=== PATIENT | male | born 1955 | race African-American/Black ===

== ENCOUNTER 2021-11-02 23:33 | Inpatient (IN) | payer OTHER ==
[~2021-11-02] VITALS: Ht 175.3 cm; Wt 96.9 kg
[2021-11-02 23:53] VITALS: BP 111/69
[2021-11-03] VITALS (22 sets, daily range): BP systolic 83–143; BP diastolic 59–80
--- NOTE | 2021-11-03 00:14 | RAD ---
EXAMINATION: Chest radiograph. VIEWS: 1 COMPARISON: None INDICATION:66 years, Male, ET tube placement. FINDINGS: Stable cardiomediastinal silhouette. Left basilar consolidative opacity unchanged since prior exam. R ight basilar subsegmental atelectasis. No pleural effusion or pneumothorax. No acute osseous process. Endotracheal tube tip locates approximately 6.2 cm proximal to han. Enteric tube tip and sidehole seen within the stomach. IMPRESSION: 1. Endotracheal tube tip in satisfactory position. 2. Unchanged left basilar infiltrate. Electronically signed by: Jimenez Douglass MD (11/03/2021 12:12 AM) [facility]
[2021-11-03] MEDS ORDERED: POLYVINYL ALCOHOL 1.4% OPHTH SOLUTION 15ML BOTTLE. OU PRN (00:15)
[2021-11-03] MEDS ORDERED: PROPOFOL 100 ML IV PRN (00:15)
[2021-11-03] MEDS: PROPOFOL 100 ML IV PRN ×5 (00:20→20:55)
[2021-11-03] MEDS: SODIUM BICARBONATE VIAL 150 MEQ in IV DEXTROSE 5% 1,000 ML IV SCH ×2 (03:12→15:06)
[2021-11-03 04:23] LABS: BASO # 0.1 x10^3/uL (0.0-0.2); BASO % 1 % (0-3); EOS # 0.1 x10^3/uL (0.0-0.7); EOS % 1 % (0-3); HEMATOCRIT 37.1 % (39.0-53.0); HEMOGLOBIN 12.6 g/dL (13.0-17.5); LYMPH # 1.3 x10^3/uL (1.0-4.8); LYMPH % 13 % (24-48); MEAN CORPUSCULAR HEMOGLOBIN 28 pg (25-35); MEAN CORPUSCULAR HGB CONC 34 g/dL (31-37); MEAN CORPUSCULAR VOLUME 83 fL (79-100); MONO # 0.5 x10^3/uL (0.0-1.1); MONO % 5 % (0-9); NEUT % 80 % (31-73); PLATELET COUNT 239 x10^3/uL (140-400); RED BLOOD COUNT 4.46 x10^6/uL (4.30-5.70); RED CELL DISTRIBUTION WIDTH 13.5 % (11.5-14.5); WHITE BLOOD COUNT 10.1 x10^3/uL (4.0-11.0)
[2021-11-03 04:47] LABS: ALBUMIN 3.8 g/dL (3.4-5.0); ALBUMIN/GLOBULIN RATIO 1.1 (1.0-1.7); CALCIUM 8.6 mg/dL (8.5-10.1); POTASSIUM 3.7 mmol/L (3.5-5.1); TOTAL BILIRUBIN 0.7 mg/dL (0.2-1.0); TOTAL PROTEIN 7.2 g/dL (6.4-8.2)
--- NOTE | 2021-11-03 06:41 | NUR ---
Pt intubated and sedated with 15mcg propofol, carvalho in place. Pt bp stable with map >65 throughout shift, HR occasionally lalitha in mid 50's otherwise in the 60's. Pt intermittently thrashes in bed when awoken but will calm back down with RN calming. Pt maintains gag refelx, carvalho put out 2000ml this shift. Unable to finish admission: immunization,family, past medical history and general questions admission.
[2021-11-03 08:03] LABS: BASE EXCESS ABG 2 mmol/L (-3-3); HCO3 ABG 27 mmol/L (21-28); PCO2 ABG 41 mmHg (35-46); PO2 ABG 116 mmHg (65-108); SAT O2 ABG 98 % (92-99)
--- NOTE | 2021-11-03 09:41 | PN ---
DATE: 11/03/2021 SUBJECTIVE: The patient is intubated and mechanically ventilated. He is on propofol and bicarb drip. He was seen by the lug loader who recommended a bicarbonate drip. PHYSICAL EXAMINATION: GENERAL: When I examined him this morning, he looked well and was clearly in no apparent respiratory distress. No pallor, jaundice, cyanosis or thyromegaly. No jugular venous distention. No limb edema. VITAL SIGNS: His heart rate was 59, blood pressure was 118/72, temperature 97.6, respiratory rate was 18 and oxygen saturation was 100% on FiO2 of 50%. HEAD, EYES, EARS, NOSE, AND THROAT: Normocephalic, atraumatic. He has orotracheal and orogastric tube. NECK: Supple. HEART: Showed normal first and second heart sounds. No gallop or murmur. CHEST: Shows central trachea, equal bilateral chest expansion, air entry, vesicular breath sounds. No crepitation or rhonchi. ABDOMEN: Distended, soft, nontender. NEUROLOGIC: He is sedated; however, he opens eyes and moves all extremities spontaneously. GENITOURINARY: He has an indwelling Buck catheter. His intake and output are incompletely recorded. LABORATORY DATA: His lab work this morning showed a pH of 7.44, pCO2 of 41, pO2 of 116, bicarbonate 27 and oxygen saturation of 98% on FiO2 of 60%. His white cell count was 10,000, hemoglobin 13, hematocrit 37, MCV 83 and platelet count 239,000 with normal manual differential. His chemistry showed a serum sodium 140, potassium 3.7, chloride 102, bicarbonate 28, anion gap of 10, BUN 16, creatinine 1, estimated GFR was 91 mL per minute. His glucose 116, calcium was 8.6. Total bilirubin, AST, ALT, alkaline phosphatase were normal. His CK was high at 1093, total protein 7.2, albumin was 3.8. ASSESSMENT: 1. Suicidal attempt by overdose on Flexeril and baclofen, he took 460 mg. 2. Acute hypoxic respiratory failure. 3. Hypertension. 4. Anxiety and depression, attempted to contact his sister by the name of Alice Brown, but apparently the number given here was wrong. PLAN: To continue with mechanical ventilation, sedation and continue with bicarbonate drip. I will monitor his potassium. YANI/NUHA DR: YANI/deana TID: [id number]
--- NOTE | 2021-11-03 10:34 | CONS ---
DATE OF CONSULTATION: 11/03/2021 PULMONARY CONSULTATION ATTENDING PHYSICIAN: Savanna Canseco MD REASON FOR CONSULTATION: Respiratory failure, suicide overdose with baclofen. HISTORY OF PRESENT ILLNESS: The patient is a 66-year-old male who lives in [place]. He was brought to [facility] after he was found to be in respiratory failure. He was not responsive. He was very agitated and restless as well. The patient has history of anxiety and depression. He was intubated. He was found to have taken 23 pills of baclofen, which were 20 mg each. Arterial blood gases reveal a pH of 7.44, pCO2 of 41 and a pO2 of 116 on 60% FiO2. He is down to 50% FiO2, 5 of PEEP, assist control of 18. Chest x-ray revealed an elevated right hemidiaphragm. There is some volume loss in the left base. Consultation requested for further evaluation and management. PAST MEDICAL HISTORY: Significant for history of anxiety, depression, history of hypertension. PAST SURGICAL HISTORY: No recent surgery. ALLERGIES: DULOXETINE, HYDROCHLOROTHIAZIDE AND TRIAMTERENE. MEDICATIONS: Reviewed as listed in the MRAD including bicarbonate drip. REVIEW OF SYSTEMS: Unable to obtain. He is on the ventilator. SOCIAL HISTORY: Unable to obtain from the patient. PHYSICAL EXAMINATION: VITAL SIGNS: Reviewed. Blood pressure is stable, pulse ox is 100%. Afebrile. NECK: Supple. LUNGS: With few anterior rhonchi. CARDIOVASCULAR: With a regular rate. ABDOMEN: Soft, nontender. EXTREMITIES: With trace pitting edema. LABORATORY DATA: Reviewed. ABG discussed in my history of present illness. BUN 16, creatinine 1.0. White cell count 10.1, hemoglobin 12.6 and platelets are 239. IMPRESSION: 1. Acute respiratory failure secondary to toxic encephalopathy/baclofen overdose. 2. Toxic encephalopathy secondary to baclofen overdose. The patient took 23 pills each 20 mg dose. 3. Severe agitation. 4. Abnormal chest x-ray with elevated right hemidiaphragm and volume loss of the left base. 5. No significant bradycardia. It can be associated with baclofen overdose. We will closely monitor. Atropine as indicated if needed. 6. Baclofen overdose can also mimic anoxic encephalopathy. RECOMMENDATIONS: 1. We will continue present assist control mode. We will keep the patient intubated for at least 48 hours. We will follow the poison control guidelines. We will leave him on propofol and avoid Versed per poison control. 2. Follow ABGs and make necessary adjustments. 3. Continue bicarbonate drip. 4. Follow chest x-rays as needed. 5. DVT and stress ulcer prophylaxis. 6. Discussed with RN, discussed with RT and discussed with Dr. Canseco. Chart reviewed, imaging studies reviewed. Discussed with Dr. Olivas. Total critical care time [address]: Pankaj TID: [id number] [facility]
--- NOTE | 2021-11-03 11:13 | HP ---
DATE OF SERVICE: 11/03/2021 ADMIT DATE: 11/02/2021 HISTORY OF PRESENT ILLNESS: The patient is a 66-year-old -[place] male patient who presented to Emergency Room of [facility] with an overdose and chief complaint of suicidal ideation and suicidal attempt. States at about 6 p.m., he took 23 tablets of 20 mg Flexeril with a total of 460 mg of baclofen. He has no homicidal ideation, no hallucination. He took all this between 6 p.m. and 7 p.m. His vital signs initially were notable for hypertension. Physical exam was initially stable. His toxic dose of baclofen is 200 and poison control center was consulted. The poison center said that 99% of the time, the patient is going to coma, can make brain , have bradycardia and hypotension and being intubated, the patient rolled to the trauma bay, 2 IVs were placed, cardiac pads in place, IV fluid resuscitation began. Discussed findings with the patient. He expressed his wish to being a Full Code. While in the trauma bay, the patient became pale, diaphoretic with the blood pressure dropping and arterial pressure dropping from initial. He became sleepy and nauseous, so a decision was made to intubate while there is time before he becomes emergent. Also, concerned about airway protection as the patient most likely would become unconscious and could vomit as he was already nauseous and had a concern for aspiration and a 7.5 mm endotracheal tube was placed under video laryngoscope; 20 mg of etomidate and 100 mg rocuronium pain control strategy initially after intubation with fentanyl given. The patient was probably sedated enough on his baclofen and the patient was basically transferred to [facility] to continue mechanical ventilation. Consult the liberal arts teacher and credit adjuster as he likely requires hemodialysis for this overdose of baclofen. PAST MEDICAL HISTORY: Significant for hypertension, depression and anxiety together with paresthesia. FAMILY HISTORY: Unobtainable. SOCIAL HISTORY: Also unobtainable except that he is depressed and has had a suicidal attempt. REVIEW OF SYSTEMS: Unobtainable. ALLERGIES: HE IS ALLERGIC TO DULOXETINE, HYDROCHLOROTHIAZIDE AND TRIAMTERENE. MEDICATIONS: He is currently on the following medications. PHYSICAL EXAMINATION: GENERAL: On arrival to the Emergency Room, he was initially awake, alert, responding appropriately. There is no pallor, jaundice, cyanosis, thyromegaly. No jugular venous distension. No limb edema. VITAL SIGNS: His heart rate on arrival was 94, blood pressure was 113/61, temperature was 97.9, respiratory rate was 18 and oxygen saturation was 100% on room air. HEAD, EYES, EARS, NOSE, AND THROAT: Normocephalic, atraumatic. NECK: Supple. HEART: Showed normal first and second heart sounds. No gallop or murmur. CHEST: Clear to auscultation. No crepitation or rhonchi. ABDOMEN: Distended, soft, nontender. NEUROLOGIC: He was grossly intact. LABORATORY DATA: His lab work showed a white cell count of 14,200; hemoglobin 13; hematocrit 39; MCV 84 and platelet count 268,000 with an automated differential showed 88% polymorphs, 7% lymphocytes and 4% monocytes. His serum sodium was 134, potassium 4.4, chloride 99, bicarbonate 27, anion gap of 8, BUN 19, creatinine 1.3. Estimated GFR was 67 mL per minute. His glucose was 99, calcium was 9.5. Total bilirubin, AST, ALT, alkaline phosphatase were normal. His troponin high sensitivity was 10. Total protein 8.3, albumin was 4.5. His arterial blood gases after intubation showed a pH of 7.33, pCO2 of 52, pO2 of 83 and bicarbonate 28 and oxygen saturation was 95% on FiO2 of 60%. His urinalysis is essentially unremarkable. Toxic screen was positive for amphetamine, methamphetamine. His coronavirus rapid testing was negative. DIAGNOSTIC DATA: His chest x-ray after intubation showed an endotracheal tube tip about 5.7 cm above the han. Subsequent radiographs was obtained after placement of enteric tube with distal aspect difficult to evaluate given overlying structures, mild patchy mid and bibasilar opacities, no pleural effusion, no pneumothorax, normal heart size. ASSESSMENT AND PLAN: The patient obviously was intubated because of the altered mental status, nausea and to protect his airways and was transferred to [facility] to consult the liberal arts teacher as well as a credit adjuster for hemodialysis for the diagnosis of baclofen overdose that he took 460 mg tablet of baclofen and has other medical problems with hypertension, anxiety and depression. He was started on IV fluid as well as propofol for sedation. YANI/BOB/PATRICIA DR: YANI/deana TID: [id number]
[2021-11-03] MEDS: ENOXAPARIN 40 MG/0.4 ML SYRINGE. SQ SCH (12:26)
[2021-11-03 16:08] LABS: POTASSIUM 4.1 mmol/L (3.5-5.1)
[2021-11-03] MEDS: FAMOTIDINE 20 MG TABLET. PO SCH (20:55)
[2021-11-04] VITALS (24 sets, daily range): BP systolic 104–153; BP diastolic 58–89
[2021-11-04] MEDS: PROPOFOL 100 ML IV PRN ×7 (01:19→23:09)
[2021-11-04] MEDS: SODIUM BICARBONATE VIAL 150 MEQ in IV DEXTROSE 5% 1,000 ML IV SCH ×2 (01:19→14:57)
[2021-11-04 05:00] LABS: BASO # 0.1 x10^3/uL (0.0-0.2); BASO % 1 % (0-3); EOS # 0.1 x10^3/uL (0.0-0.7); EOS % 1 % (0-3); HEMATOCRIT 39.2 % (39.0-53.0); LYMPH # 1.4 x10^3/uL (1.0-4.8); LYMPH % 20 % (24-48); MEAN CORPUSCULAR HEMOGLOBIN 27 pg (25-35); MEAN CORPUSCULAR HGB CONC 33 g/dL (31-37); MEAN CORPUSCULAR VOLUME 82 fL (79-100); MONO # 0.3 x10^3/uL (0.0-1.1); MONO % 5 % (0-9); NEUT # 5.3 x10^3/uL (1.8-7.7); NEUT % 73 % (31-73); PLATELET COUNT 223 x10^3/uL (140-400); RED BLOOD COUNT 4.77 x10^6/uL (4.30-5.70); RED CELL DISTRIBUTION WIDTH 13.6 % (11.5-14.5); WHITE BLOOD COUNT 7.2 x10^3/uL (4.0-11.0)
[2021-11-04 05:23] LABS: ALBUMIN 3.3 g/dL (3.4-5.0); ALBUMIN/GLOBULIN RATIO 0.9 (1.0-1.7); CALCIUM 8.3 mg/dL (8.5-10.1); POTASSIUM 3.3 mmol/L (3.5-5.1); TOTAL BILIRUBIN 0.4 mg/dL (0.2-1.0)
--- NOTE | 2021-11-04 05:38 | PDOC ---
PULMONARY PROGRESS NOTES DATE: 11/04/21 TIME: 05:38 Subjective on vent sedated on prop fentanyl fi02 50% peep 5 Vitals Vital Signs Date Time Temp Pulse Resp B/P (MAP) Pulse Ox O2 Delivery O2 Flow Rate FiO2 11/04/21 04:00 98 Ventilator 11/04/21 02:00 63 18 118/75 (89) 11/04/21 00:00 97.1 97.1 Comments ros unable to obtain sedated on vent HEENT: Other (nc at perrl nose clear orally intubated neck no lad no thyromegaly) Lungs: Clear Cardiovascular: S1, S2 Abdomen: Soft, Non-tender Extremities: No Edema Skin: Warm Labs Laboratory Tests Test 11/03/21 04:00 11/03/21 07:54 11/03/21 15:00 11/04/21 04:30 White Blood Count 10.1 x10^3/uL (4.0-11.0) 7.2 x10^3/uL (4.0-11.0) Red Blood Count 4.46 x10^6/uL (4.30-5.70) 4.77 x10^6/uL (4.30-5.70) Hemoglobin 12.6 g/dL (13.0-17.5) 13.0 g/dL (13.0-17.5) Hematocrit 37.1 % (39.0-53.0) 39.2 % (39.0-53.0) Mean Corpuscular Volume 83 fL (79-100) 82 fL (79-100) Mean Corpuscular Hemoglobin 28 pg (25-35) 27 pg (25-35) Mean Corpuscular Hemoglobin Concent 34 g/dL (31-37) 33 g/dL (31-37) Red Cell Distribution Width 13.5 % (11.5-14.5) 13.6 % (11.5-14.5) Platelet Count 239 x10^3/uL (140-400) 223 x10^3/uL (140-400) Neutrophils (%) (Auto) 80 % (31-73) 73 % (31-73) Lymphocytes (%) (Auto) 13 % (24-48) 20 % (24-48) Monocytes (%) (Auto) 5 % (0-9) 5 % (0-9) Eosinophils (%) (Auto) 1 % (0-3) 1 % (0-3) Basophils (%) (Auto) 1 % (0-3) 1 % (0-3) Neutrophils # (Auto) 8.0 x10^3/uL (1.8-7.7) 5.3 x10^3/uL (1.8-7.7) Lymphocytes # (Auto) 1.3 x10^3/uL (1.0-4.8) 1.4 x10^3/uL (1.0-4.8) Monocytes # (Auto) 0.5 x10^3/uL (0.0-1.1) 0.3 x10^3/uL (0.0-1.1) Eosinophils # (Auto) 0.1 x10^3/uL (0.0-0.7) 0.1 x10^3/uL (0.0-0.7) Basophils # (Auto) 0.1 x10^3/uL (0.0-0.2) 0.1 x10^3/uL (0.0-0.2) Sodium Level 140 mmol/L (136-145) 143 mmol/L (136-145) 143 mmol/L (136-145) Potassium Level 3.7 mmol/L (3.5-5.1) 4.1 mmol/L (3.5-5.1) 3.3 mmol/L (3.5-5.1) Chloride Level 102 mmol/L (98-107) 105 mmol/L (98-107) 104 mmol/L (98-107) Carbon Dioxide Level 28 mmol/L (21-32) 29 mmol/L (21-32) 32 mmol/L (21-32) Anion Gap 10 (6-14) 9 (6-14) 7 (6-14) Blood Urea Nitrogen 16 mg/dL (8-26) 11 mg/dL (8-26) 7 mg/dL (8-26) Creatinine 1.0 mg/dL (0.7-1.3) 1.0 mg/dL (0.7-1.3) 1.0 mg/dL (0.7-1.3) Estimated GFR (Cockcroft-Gault) 91.0 91.0 91.0 BUN/Creatinine Ratio 16 (6-20) 7 (6-20) Glucose Level 116 mg/dL (70-99) 115 mg/dL (70-99) 129 mg/dL (70-99) Calcium Level 8.6 mg/dL (8.5-10.1) 9.0 mg/dL (8.5-10.1) 8.3 mg/dL (8.5-10.1) Total Bilirubin 0.7 mg/dL (0.2-1.0) 0.4 mg/dL (0.2-1.0) Aspartate Amino Transf (AST/SGOT) 32 U/L (15-37) 33 U/L (15-37) Alanine Aminotransferase (ALT/SGPT) 30 U/L (16-63) 31 U/L (16-63) Alkaline Phosphatase 81 U/L (46-116) 80 U/L (46-116) Creatine Kinase 1093 U/L (39-308) 744 U/L (39-308) Total Protein 7.2 g/dL (6.4-8.2) 7.0 g/dL (6.4-8.2) Albumin 3.8 g/dL (3.4-5.0) 3.3 g/dL (3.4-5.0) Albumin/Globulin Ratio 1.1 (1.0-1.7) 0.9 (1.0-1.7) O2 Saturation 98 % (92-99) Arterial Blood pH 7.44 (7.35-7.45) Arterial Blood pCO2 at Patient Temp 41 mmHg (35-46) Arterial Blood pO2 at Patient Temp 116 mmHg (65-108) Arterial Blood HCO3 27 mmol/L (21-28) Arterial Blood Base Excess 2 mmol/L (-3-3) FiO2 60% vent Laboratory Tests Test 11/03/21 07:54 11/03/21 15:00 11/04/21 04:30 O2 Saturation 98 % (92-99) Arterial Blood pH 7.44 (7.35-7.45) Arterial Blood pCO2 at Patient Temp 41 mmHg (35-46) Arterial Blood pO2 at Patient Temp 116 mmHg (65-108) Arterial Blood HCO3 27 mmol/L (21-28) Arterial Blood Base Excess 2 mmol/L (-3-3) FiO2 60% vent Sodium Level 143 mmol/L (136-145) 143 mmol/L (136-145) Potassium Level 4.1 mmol/L (3.5-5.1) 3.3 mmol/L (3.5-5.1) Chloride Level 105 mmol/L (98-107) 104 mmol/L (98-107) Carbon Dioxide Level 29 mmol/L (21-32) 32 mmol/L (21-32) Anion Gap 9 (6-14) 7 (6-14) Blood Urea Nitrogen 11 mg/dL (8-26) 7 mg/dL (8-26) Creatinine 1.0 mg/dL (0.7-1.3) 1.0 mg/dL (0.7-1.3) Estimated GFR (Cockcroft-Gault) 91.0 91.0 Glucose Level 115 mg/dL (70-99) 129 mg/dL (70-99) Calcium Level 9.0 mg/dL (8.5-10.1) 8.3 mg/dL (8.5-10.1) White Blood Count 7.2 x10^3/uL (4.0-11.0) Red Blood Count 4.77 x10^6/uL (4.30-5.70) Hemoglobin 13.0 g/dL (13.0-17.5) Hematocrit 39.2 % (39.0-53.0) Mean Corpuscular Volume 82 fL (79-100) Mean Corpuscular Hemoglobin 27 pg (25-35) Mean Corpuscular Hemoglobin Concent 33 g/dL (31-37) Red Cell Distribution Width 13.6 % (11.5-14.5) Platelet Count 223 x10^3/uL (140-400) Neutrophils (%) (Auto) 73 % (31-73) Lymphocytes (%) (Auto) 20 % (24-48) Monocytes (%) (Auto) 5 % (0-9) Eosinophils (%) (Auto) 1 % (0-3) Basophils (%) (Auto) 1 % (0-3) Neutrophils # (Auto) 5.3 x10^3/uL (1.8-7.7) Lymphocytes # (Auto) 1.4 x10^3/uL (1.0-4.8) Monocytes # (Auto) 0.3 x10^3/uL (0.0-1.1) Eosinophils # (Auto) 0.1 x10^3/uL (0.0-0.7) Basophils # (Auto) 0.1 x10^3/uL (0.0-0.2) BUN/Creatinine Ratio 7 (6-20) Total Bilirubin 0.4 mg/dL (0.2-1.0) Aspartate Amino Transf (AST/SGOT) 33 U/L (15-37) Alanine Aminotransferase (ALT/SGPT) 31 U/L (16-63) Alkaline Phosphatase 80 U/L (46-116) Creatine Kinase 744 U/L (39-308) Total Protein 7.0 g/dL (6.4-8.2) Albumin 3.3 g/dL (3.4-5.0) Albumin/Globulin Ratio 0.9 (1.0-1.7) Comments 11/04 cxr reviewed There is an endotracheal tube within the mid trachea. There is a nasogastric tube looped within the stomach. There is stable elevation of the right hemidiaphragm and bilateral lower lobe interstitial infiltrate. There are suspected partial left lower lobe consolidation. There is no pneumothorax. There is no pleural effusion. The heart is normal in size. Impression . IMPRESSION: 1. Acute respiratory failure secondary to toxic encephalopathy/baclofen overdose. 2. Toxic encephalopathy secondary to baclofen overdose. The patient took 23 pills each 20 mg dose. 3. Severe agitation. 4. Abnormal chest x-ray with elevated right hemidiaphragm and volume loss of the left base. 5. No significant bradycardia. It can be associated with baclofen overdose. We will closely monitor. Atropine as indicated if needed. 6. Baclofen overdose can also mimic anoxic encephalopathy. Plan . RECOMMENDATIONS: 1. cont vent support setting reviewed decrease fi02 40% sbt when more stable We will follow the poison control guidelines. We will leave him on propofol and avoid Versed per poison control. 2. Follow ABGs and make necessary adjustments. 3. Continue bicarbonate drip. per nephro 4. chest x-rays reviewed 5. DVT and stress ulcer prophylaxis. 6. Discussed with RN, discussed with DARIANA SHUKLA MD Nov 04, 2021 05:38
--- NOTE | 2021-11-04 08:29 | PN ---
DATE: 11/04/2021 SUBJECTIVE: The patient continued to be sedated, intubated and mechanically ventilated. He is on a bicarb drip. PHYSICAL EXAMINATION: GENERAL: When I saw him this morning, he looked well and was clearly in no apparent respiratory distress. No pallor, jaundice, cyanosis or thyromegaly. No jugular venous distention. No lower limb edema. VITAL SIGNS: His heart rate was 74, blood pressure was 115/67, temperature 98.2, respiratory rate was 18 and oxygen saturation was 100% on FiO2 of 40%. HEAD, EYES, EARS, NOSE, AND THROAT: Normocephalic, atraumatic. NECK: Supple. HEART: Showed normal first and second heart sounds. No gallop, rub or murmur. CHEST: Clear to auscultation, no crepitation or rhonchi. ABDOMEN: Distended, soft, nontender. NEUROLOGIC: He is heavily sedated, but able to move his extremities spontaneously. His intake over the last 24 hours was 373, output was 1975. LABORATORY DATA: As of this morning, his white cell count was 7200, hemoglobin 13, hematocrit 39, MCV 82 and platelet count 223,000. His chemistry showed a serum sodium 143, potassium 3.3, chloride 104, bicarbonate 32, anion gap of 7, BUN 7, creatinine 1, estimated GFR was 91 mL per minute. His glucose 129, calcium was 8.3. Total bilirubin, AST, ALT, alkaline phosphatase were normal. CK is down to 744. Total protein 7, albumin 3.3. ASSESSMENT: 1. Suicidal attempt by overdosing on baclofen. He took a total of 460 mg. 2. Acute hypoxic respiratory failure. 3. Hypertension. 4. Anxiety and depression. 5. Hypokalemia. PLAN: My plan is to obviously continue with mechanical ventilation, sedation and bicarb drip. We will replenish his potassium. I will contact the poison control center to see whether bicarbonate drip is part of the treatment. JESSICA DR: Rhea TID: [id number]
--- NOTE | 2021-11-04 08:56 | RAD ---
EXAM: Chest, single view. HISTORY: Endotracheal tube placement. COMPARISON: 11/02/2021 FINDINGS: A frontal view of the chest is obtained. There is an endotracheal tube within the mid trach ea. There is a nasogastric tube looped within the stomach. There is stable elevation of the right hem idiaphragm and bilateral lower lobe interstitial infiltrate. There are suspected partial left lower l obe consolidation. There is no pneumothorax. There is no pleural effusion. The heart is normal in siz e. IMPRESSION: 1. Stable partially consolidated bilateral lower lobe infiltrate. 2. Stable elevation of the right hemidiaphragm. 3. Stable support lines and tubes. Electronically signed by: Gloria Urbina MD (11/04/2021 8:54 AM) [facility]
[2021-11-04] MEDS ORDERED: POTASSIUM BICARB 20 MEQ EFFERVESCENT TABLET. PO ONE (09:00)
[2021-11-04] MEDS ORDERED: POTASSIUM CHLORIDE 20 MEQ TABLET.ER. PO ONE (09:00)
[2021-11-04] MEDS: ENOXAPARIN 40 MG/0.4 ML SYRINGE. SQ SCH (10:41)
[2021-11-04] MEDS: FAMOTIDINE 20 MG TABLET. PO SCH (20:11)
[2021-11-05] VITALS (23 sets, daily range): BP systolic 108–144; BP diastolic 60–93
[2021-11-05] MEDS: SODIUM BICARBONATE VIAL 150 MEQ in IV DEXTROSE 5% 1,000 ML IV SCH ×2 (03:27→13:55)
[2021-11-05] MEDS: PROPOFOL 100 ML IV PRN ×7 (04:34→23:54)
--- NOTE | 2021-11-05 05:51 | PDOC ---
PULMONARY PROGRESS NOTES DATE: 11/05/21 TIME: 05:51 Subjective on vent sedated on prop fentanyl fi02 40% peep 5 small ett secretion Vitals Vital Signs Date Time Temp Pulse Resp B/P (MAP) Pulse Ox O2 Delivery O2 Flow Rate FiO2 11/05/21 05:00 100 Ventilator 11/05/21 01:00 74 18 135/77 (96) 11/05/21 00:00 98.7 98.7 Comments ros unable to obtain sedated on vent HEENT: Other (nc at perrl nose clear orally intubated neck no lad no thyromegaly) Lungs: Clear Cardiovascular: S1, S2 Abdomen: Soft, Non-tender Extremities: No Edema Skin: Warm Labs Laboratory Tests Test 11/03/21 07:54 11/03/21 15:00 11/04/21 04:30 O2 Saturation 98 % (92-99) Arterial Blood pH 7.44 (7.35-7.45) Arterial Blood pCO2 at Patient Temp 41 mmHg (35-46) Arterial Blood pO2 at Patient Temp 116 mmHg (65-108) Arterial Blood HCO3 27 mmol/L (21-28) Arterial Blood Base Excess 2 mmol/L (-3-3) FiO2 60% vent Sodium Level 143 mmol/L (136-145) 143 mmol/L (136-145) Potassium Level 4.1 mmol/L (3.5-5.1) 3.3 mmol/L (3.5-5.1) Chloride Level 105 mmol/L (98-107) 104 mmol/L (98-107) Carbon Dioxide Level 29 mmol/L (21-32) 32 mmol/L (21-32) Anion Gap 9 (6-14) 7 (6-14) Blood Urea Nitrogen 11 mg/dL (8-26) 7 mg/dL (8-26) Creatinine 1.0 mg/dL (0.7-1.3) 1.0 mg/dL (0.7-1.3) Estimated GFR (Cockcroft-Gault) 91.0 91.0 Glucose Level 115 mg/dL (70-99) 129 mg/dL (70-99) Calcium Level 9.0 mg/dL (8.5-10.1) 8.3 mg/dL (8.5-10.1) White Blood Count 7.2 x10^3/uL (4.0-11.0) Red Blood Count 4.77 x10^6/uL (4.30-5.70) Hemoglobin 13.0 g/dL (13.0-17.5) Hematocrit 39.2 % (39.0-53.0) Mean Corpuscular Volume 82 fL (79-100) Mean Corpuscular Hemoglobin 27 pg (25-35) Mean Corpuscular Hemoglobin Concent 33 g/dL (31-37) Red Cell Distribution Width 13.6 % (11.5-14.5) Platelet Count 223 x10^3/uL (140-400) Neutrophils (%) (Auto) 73 % (31-73) Lymphocytes (%) (Auto) 20 % (24-48) Monocytes (%) (Auto) 5 % (0-9) Eosinophils (%) (Auto) 1 % (0-3) Basophils (%) (Auto) 1 % (0-3) Neutrophils # (Auto) 5.3 x10^3/uL (1.8-7.7) Lymphocytes # (Auto) 1.4 x10^3/uL (1.0-4.8) Monocytes # (Auto) 0.3 x10^3/uL (0.0-1.1) Eosinophils # (Auto) 0.1 x10^3/uL (0.0-0.7) Basophils # (Auto) 0.1 x10^3/uL (0.0-0.2) BUN/Creatinine Ratio 7 (6-20) Total Bilirubin 0.4 mg/dL (0.2-1.0) Aspartate Amino Transf (AST/SGOT) 33 U/L (15-37) Alanine Aminotransferase (ALT/SGPT) 31 U/L (16-63) Alkaline Phosphatase 80 U/L (46-116) Creatine Kinase 744 U/L (39-308) Total Protein 7.0 g/dL (6.4-8.2) Albumin 3.3 g/dL (3.4-5.0) Albumin/Globulin Ratio 0.9 (1.0-1.7) Comments 11/05 cxr reviewed, ett ok Heart size is normal. Retrocardiac left lower lobe opacity adjacent to the diaphragm stable. Mild elevation of the right diaphragm with basilar lower lobe opacity is stable, a small subpulmonic right pleural effusion cannot be excluded. 11/04 cxr reviewed There is an endotracheal tube within the mid trachea. There is a nasogastric tube looped within the stomach. There is stable elevation of the right hemidiaphragm and bilateral lower lobe interstitial infiltrate. There are susp ected partial left lower lobe consolidation. There is no pneumothorax. There is no pleural effusion. The heart is normal in size. Impression . IMPRESSION: 1. Acute respiratory failure secondary to toxic encephalopathy/baclofen overdose. 2. Toxic encephalopathy secondary to baclofen overdose. The patient took 23 pills each 20 mg dose. 3. Severe agitation. 4. Abnormal chest x-ray with elevated right hemidiaphragm and volume loss of the left base. 5. No significant bradycardia. It can be associated with baclofen overdose. We will closely monitor. Atropine as indicated if needed. 6. Baclofen overdose can also mimic anoxic encephalopathy. Plan . 11/05 1. cont vent support setting reviewed decrease sedation sbt when more alert he is agitated w decrease sedation ck up to 4000 will cont sedation add precedex if needed no sbt tiral today We will follow the poison control guidelines. no Versed per poison control. 2. Follow ABGs and make necessary adjustments. 3. Continue bicarbonate drip. per nephro 4. chest x-rays reviewed 5. DVT and stress ulcer prophylaxis. 6. Discussed with RN, discussed with RT RECOMMENDATIONS: 1. cont vent support setting reviewed decrease fi02 40% sbt when more stable We will follow the poison control guidelines. We will leave him on propofol and avoid Versed per poison control. 2. Follow ABGs and make necessary adjustments. 3. Continue bicarbonate drip. per nephro 4. chest x-rays reviewed 5. DVT and stress ulcer prophylaxis. 6. Discussed with RN, discussed with RT DARIANA FIGUEROA MD Nov 05, 2021 05:51
--- NOTE | 2021-11-05 06:07 | RAD ---
AP chest x-ray COMPARISON: Chest x-ray November 05, 2019 HISTORY: Endotracheal tube placement. FINDINGS: Endotracheal tube has been placed tip 7 cm above the han. Nasogastric tube tip left uppe r quadrant abdomen radiographic region upper stomach. Heart size is normal. Retrocardiac left lower l obe opacity adjacent to the diaphragm stable. Mild elevation of the right diaphragm with basilar lowe r lobe opacity is stable, a small subpulmonic right pleural effusion cannot be excluded. IMPRESSION: Lines and tubes as described above. Stable basilar airspace disease as described above. Electronically signed by: Stalni Luna MD (11/05/2021 6:04 AM) [facility]
[2021-11-05 07:25] LABS: ALBUMIN/GLOBULIN RATIO 0.8 (1.0-1.7); CALCIUM 8.4 mg/dL (8.5-10.1); CREATININE 1.2 mg/dL (0.7-1.3); GFR 73.8; POTASSIUM 3.4 mmol/L (3.5-5.1); TOTAL BILIRUBIN 0.4 mg/dL (0.2-1.0); TOTAL PROTEIN 6.8 g/dL (6.4-8.2)
[2021-11-05 08:30] LABS: BASE EXCESS ABG 10 mmol/L (-3-3); HCO3 ABG 33 mmol/L (21-28); PCO2 ABG 41 mmHg (35-46); PO2 ABG 78 mmHg (65-108); SAT O2 ABG 96 % (92-99)
[2021-11-05] MEDS: POTASSIUM BICARB 20 MEQ EFFERVESCENT TABLET. FT SCH ×3 (09:09→20:41)
[2021-11-05 09:14] LABS: FIO2 ABG 40% vent
[2021-11-05] MEDS ORDERED: IV NORMAL SALINE 500ML BAG 500 ML IV PRN (09:30)
[2021-11-05] MEDS ORDERED: ATROPINE 0.5 MG/5 ML DISP.SYRINGE. IV PRN (09:30)
[2021-11-05] MEDS: DEXMEDETOMIDINE 400 MCG in IV NORMAL SALINE 100ML 96 ML IV PRN ×2 (10:04→20:39)
[2021-11-05] MEDS: ENOXAPARIN 40 MG/0.4 ML SYRINGE. SQ SCH (12:24)
--- NOTE | 2021-11-05 14:03 | PN ---
DATE: 11/05/2021 SUBJECTIVE: The patient continued to be sedated, intubated and mechanically ventilated. Continue on bicarb drip. Unfortunately, his potassium is down to 3.4 and his CK has actually risen from 744 up to 4188. PHYSICAL EXAMINATION: GENERAL: When I examined him, he looked well and was clearly in no apparent respiratory distress. No pallor, jaundice, cyanosis or thyromegaly. No jugular venous distention. No lower limb edema. VITAL SIGNS: His heart rate was 85, blood pressure was 144/84, temperature was 98.8, respiratory rate was 18 and oxygen saturation was 99% on FiO2 of 40%. HEAD, EYES, EARS, NOSE, AND THROAT: Showed he is normocephalic, atraumatic. Has orotracheal and orogastric tube. NECK: Supple. HEART: Showed normal first and second heart sounds. No gallop, rub or murmur. CHEST: Clear to auscultation. No crepitation or rhonchi. ABDOMEN: Slightly distended, soft, nontender. NEUROLOGIC: He is sedated. His intake was 2010, output was 2700. LABORATORY DATA: As of yesterday, his white cell count was 7.2, hemoglobin 13, hematocrit 39, MCV 82 and platelet count 223,000. As of this morning, his serum sodium 140, potassium 3.4, chloride 100, bicarbonate 35, anion gap of 5, BUN 6, creatinine 1.2. Estimated GFR was 73 mL per minute. His glucose was 123, calcium was 8.4. Total bilirubin, AST, ALT, alkaline phosphatase were normal. His CK was up to 4188, total protein 6.8, albumin 3. ASSESSMENT: 1. There was a suicidal attempt by overdosing on baclofen. He took a total of 460 mg. 2. Acute hypoxic respiratory failure. 3. Hypertension. 4. Anxiety and depression. 5. Hypokalemia. 6. Rhabdomyolysis as his CK has dramatically increased to more than 4000. PLAN: To continue with sedation, mechanical ventilation. Continue with bicarb drip, will replenish the potassium. YANI/SARAH/ELEAZAR DR: Rhea TID: [id number]
[2021-11-05] MEDS: FAMOTIDINE 20 MG TABLET. PO SCH (20:41)
[2021-11-06] VITALS (23 sets, daily range): BP systolic 90–150; BP diastolic 49–80
[2021-11-06] MEDS: SODIUM BICARBONATE VIAL 150 MEQ in IV DEXTROSE 5% 1,000 ML IV SCH ×2 (02:48→11:02)
[2021-11-06] MEDS: PROPOFOL 100 ML IV PRN ×5 (02:49→18:51)
[2021-11-06 05:24] LABS: CALCIUM 8.5 mg/dL (8.5-10.1); CREATININE 1.2 mg/dL (0.7-1.3); GFR 73.8; POTASSIUM 3.8 mmol/L (3.5-5.1)
[2021-11-06 07:58] LABS: BASE EXCESS ABG 5 mmol/L (-3-3); HCO3 ABG 27 mmol/L (21-28); PCO2 ABG 32 mmHg (35-46); PO2 ABG 65 mmHg (65-108); SAT O2 ABG 93 % (92-99)
[2021-11-06 08:01] LABS: FIO2 ABG 40
[2021-11-06] MEDS: POTASSIUM BICARB 20 MEQ EFFERVESCENT TABLET. FT SCH ×3 (08:14→21:01)
[2021-11-06] MEDS: DEXMEDETOMIDINE 400 MCG in IV NORMAL SALINE 100ML 96 ML IV PRN (08:15)
--- NOTE | 2021-11-06 08:53 | PN ---
DATE: 11/06/2021 SUBJECTIVE: The patient is continued to be heavily sedated, intubated and mechanically ventilated. He is on propofol and Precedex. Nursing staff did not voice any concerns. He had an uneventful night. PHYSICAL EXAMINATION: GENERAL: When I examined him, he looked well and was clearly in no apparent respiratory distress. HEENT: No pallor, jaundice, cyanosis or thyromegaly. No jugular venous distention. No lower limb edema. VITAL SIGNS: His heart rate was 76, blood pressure is 150/80, temperature was 98.7, respiratory rate was 18 and oxygen saturation was 98% on FiO2 of 40%. HEAD, EYES, EARS, NOSE, AND THROAT: Normocephalic, atraumatic. Has orotracheal and orogastric tube. NECK: Supple. HEART: Showed normal first and second heart sounds. No gallop, rub or murmur. CHEST: Shows central trachea, equal bilateral chest expansion, air entry, vesicular breath sounds. No crepitation or rhonchi. ABDOMEN: Distended, soft, nontender. NEUROLOGIC: He was heavily sedated. His intake over the last 24 hours was 4600, output was 1400. LABORATORY DATA: As of this morning, his most recent white cell count was 7.2, hemoglobin 13, hematocrit 39, MCV 82 and platelet count 253,000 with normal manual differential. His serum sodium was 137, potassium 3.8, chloride 96, bicarbonate 33, anion gap of 8, BUN 9, creatinine 1.2. Estimated GFR was 73 mL per minute. His glucose was 144, calcium was 8.5 and CK was high at 7330. ASSESSMENT: 1. Suicidal attempt by overdosing with baclofen. He took a total of 460 mg. 2. Acute hypoxic respiratory failure. 3. Hypertension. 4. Anxiety and depression. 5. Hypokalemia, resolved. His serum potassium is 3.8. 6. Rhabdomyolysis. Unfortunately, his CK has increased to more than 7000. PLAN: The plan is to continue with sedation, mechanical ventilation. Continue with bicarbonate drip. Continue with potassium supplement. Continue to monitor his electrolytes and CK. YANI/MARIO ALBERTO DR: Rhea TID: [id number]
--- NOTE | 2021-11-06 09:25 | RAD ---
EXAM: Chest, single view. HISTORY: Ventilatory support. COMPARISON: 11/05/2021 FINDINGS: A frontal view of the chest is obtained. There is an endotracheal tube within the mid trach ea. There is a nasogastric tube within the stomach. There is stable mild elevation of the right hemid iaphragm. There is stable partial left lower lobe consolidation superimposed on bilateral lower lobe predominant interstitial infiltrate. There is no pneumothorax. The heart is normal in size for IMPRESSION: 1. Stable partial left lower lobe consolidation and bilateral lower lobe predominant interstitial inf iltrate. 2. Stable support lines and tubes. Electronically signed by: Gloria Urbina MD (11/06/2021 9:22 AM) [id number]
--- NOTE | 2021-11-06 09:56 | PDOC ---
PULMONARY PROGRESS NOTES DATE: 11/06/21 TIME: 09:52 Subjective patient off sedation at 0920, alert weaning trial started at 0940 small ett secretion Vitals Vital Signs Date Time Temp Pulse Resp B/P (MAP) Pulse Ox O2 Delivery O2 Flow Rate FiO2 11/06/21 07:40 98 Ventilator 11/06/21 07:00 76 18 150/80 (103) 11/06/21 04:00 98.7 98.7 Comments ros unable to obtain sedated on vent General: Alert HEENT: Other (nc at perrl nose clear orally intubated neck no lad no thyromegaly) Lungs: Clear Cardiovascular: S1, S2 Abdomen: Soft, Non-tender Extremities: No Edema Skin: Warm, No Rashes Labs Laboratory Tests Test 11/05/21 06:25 11/05/21 08:00 11/06/21 03:25 11/06/21 07:50 Sodium Level 140 mmol/L (136-145) 137 mmol/L (136-145) Potassium Level 3.4 mmol/L (3.5-5.1) 3.8 mmol/L (3.5-5.1) Chloride Level 100 mmol/L (98-107) 96 mmol/L (98-107) Carbon Dioxide Level 35 mmol/L (21-32) 33 mmol/L (21-32) Anion Gap 5 (6-14) 8 (6-14) Blood Urea Nitrogen 6 mg/dL (8-26) 9 mg/dL (8-26) Creatinine 1.2 mg/dL (0.7-1.3) 1.2 mg/dL (0.7-1.3) Estimated GFR (Cockcroft-Gault) 73.8 73.8 BUN/Creatinine Ratio 5 (6-20) Glucose Level 123 mg/dL (70-99) 144 mg/dL (70-99) Calcium Level 8.4 mg/dL (8.5-10.1) 8.5 mg/dL (8.5-10.1) Total Bilirubin 0.4 mg/dL (0.2-1.0) Aspartate Amino Transf (AST/SGOT) 115 U/L (15-37) Alanine Aminotransferase (ALT/SGPT) 42 U/L (16-63) Alkaline Phosphatase 73 U/L (46-116) Creatine Kinase 4188 U/L (39-308) 7330 U/L (39-308) Total Protein 6.8 g/dL (6.4-8.2) Albumin 3.0 g/dL (3.4-5.0) Albumin/Globulin Ratio 0.8 (1.0-1.7) O2 Saturation 96 % (92-99) 93 % (92-99) Arterial Blood pH 7.53 (7.35-7.45) 7.55 (7.35-7.45) Arterial Blood pCO2 at Patient Temp 41 mmHg (35-46) 32 mmHg (35-46) Arterial Blood pO2 at Patient Temp 78 mmHg (65-108) 65 mmHg (65-108) Arterial Blood HCO3 33 mmol/L (21-28) 27 mmol/L (21-28) Arterial Blood Base Excess 10 mmol/L (-3-3) 5 mmol/L (-3-3) FiO2 40% vent 40 Laboratory Tests Test 11/06/21 03:25 11/06/21 07:50 Sodium Level 137 mmol/L (136-145) Potassium Level 3.8 mmol/L (3.5-5.1) Chloride Level 96 mmol/L (98-107) Carbon Dioxide Level 33 mmol/L (21-32) Anion Gap 8 (6-14) Blood Urea Nitrogen 9 mg/dL (8-26) Creatinine 1.2 mg/dL (0.7-1.3) Estimated GFR (Cockcroft-Gault) 73.8 Glucose Level 144 mg/dL (70-99) Calcium Level 8.5 mg/dL (8.5-10.1) Creatine Kinase 7330 U/L (39-308) O2 Saturation 93 % (92-99) Arterial Blood pH 7.55 (7.35-7.45) Arterial Blood pCO2 at Patient Temp 32 mmHg (35-46) Arterial Blood pO2 at Patient Temp 65 mmHg (65-108) Arterial Blood HCO3 27 mmol/L (21-28) Arterial Blood Base Excess 5 mmol/L (-3-3) FiO2 40 Comments 11/05 cxr reviewed, ett ok Heart size is normal. Retrocardiac left lower lobe opacity adjacent to the diaphragm stable. Mild elevation of the right diaphragm with basilar lower lobe opacity is stable, a small subpulmonic right pleural effusion cannot be excl uded. 11/04 cxr reviewed There is an endotracheal tube within the mid trachea. There is a nasogastric tube looped within the stomach. There is stable elevation of the right hemidiaphragm and bilateral lower lobe interstitial infiltrate. There are suspected partial left lower lobe consolidation. There is no pneumothorax. There is no pleural effusion. The heart is normal in size. Impression . IMPRESSION: 1. Acute respiratory failure secondary to toxic encephalopathy/baclofen overdose. 2. Toxic encephalopathy secondary to baclofen overdose. The patient took 23 pills each 20 mg dose. 3. Severe agitation. 4. Abnormal chest x-ray with elevated right hemidiaphragm and volume loss of the left base. 5. No significant bradycardia. It can be associated with baclofen overdose. We will closely monitor. Atropine as indicated if needed. 6. Baclofen overdose can also mimic anoxic encephalopathy. Plan . Updated 11/06 1. patient awake, sedation held at 0915, weaning trial started at 0940 recheck blood gas at 1040 2. Continue bicarbonate drip per nephrology 3. Chest x-ray reviewed and stable 4. ABG reviewed, see above 5. Labs reviewed and stable 6. DVT/GI prophylaxis 7. Discussed with RN 11/05 1. cont vent support setting reviewed decrease sedation sbt when more alert he is agitated w decrease sedation ck up to 4000 will cont sedation add precedex if needed no sbt tiral today We will follow the poison control guidelines. no Versed per poison control. 2. Follow ABGs and make necessary adjustments. 3. Continue bicarbonate drip. per nephro 4. chest x-rays reviewed 5. DVT and stress ulcer prophylaxis. 6. Discussed with RN, discussed with RT RECOMMENDATIONS: 1. cont vent support setting reviewed decrease fi02 40% sbt when more stable We will follow the poison control guidelines. We will leave him on propofol and avoid Versed per poison control. 2. Follow ABGs and make necessary adjustments. 3. Continue bicarbonate drip. per nephro 4. chest x-rays reviewed 5. DVT and stress ulcer prophylaxis. 6. Discussed with RN, discussed with RT RAN HUTCHINSON MD Nov 06, 2021 09:56
[2021-11-06] MEDS: ENOXAPARIN 40 MG/0.4 ML SYRINGE. SQ SCH (11:02)
--- NOTE | 2021-11-06 15:42 | NUR ---
SS following for discharge planning. SS reviewed pt chart and discussed with pt RN. Pt is from home and is currently on the vent at 40%. Pulmonology following. Pt on Propofol, Fentanyl, and Precedex. Not ready. [place] [employer] Supervisor, Xin Whitfield, ext [phone], contacted unit and requested phone call prior to discharge to arrange outpatient services for pt. SS will continue to follow for discharge planning .
[2021-11-06] MEDS: FAMOTIDINE 20 MG TABLET. PO SCH (21:01)
[2021-11-07] VITALS (24 sets, daily range): BP systolic 92–135; BP diastolic 58–93
[2021-11-07] MEDS: PROPOFOL 100 ML IV PRN ×3 (01:04→07:49)
[2021-11-07] MEDS: DEXMEDETOMIDINE 400 MCG in IV NORMAL SALINE 100ML 96 ML IV PRN ×3 (03:54→21:54)
[2021-11-07 05:30] LABS: HEMATOCRIT 37.2 % (39.0-53.0); HEMOGLOBIN 11.9 g/dL (13.0-17.5); RED BLOOD COUNT 4.45 x10^6/uL (4.30-5.70); RED CELL DISTRIBUTION WIDTH 13.4 % (11.5-14.5); WHITE BLOOD COUNT 9.4 x10^3/uL (4.0-11.0)
[2021-11-07 06:03] LABS: ALBUMIN 2.6 g/dL (3.4-5.0); ALBUMIN/GLOBULIN RATIO 0.6 (1.0-1.7); CALCIUM 8.5 mg/dL (8.5-10.1); CREATININE 1.1 mg/dL (0.7-1.3); GFR 81.5; POTASSIUM 3.7 mmol/L (3.5-5.1); TOTAL BILIRUBIN 0.3 mg/dL (0.2-1.0); TOTAL PROTEIN 6.9 g/dL (6.4-8.2)
[2021-11-07] MEDS: POTASSIUM BICARB 20 MEQ EFFERVESCENT TABLET. FT SCH ×3 (07:49→20:40)
[2021-11-07 07:53] LABS: BASE EXCESS ABG 7 mmol/L (-3-3); HCO3 ABG 32 mmol/L (21-28); PCO2 ABG 46 mmHg (35-46); PO2 ABG 71 mmHg (65-108); SAT O2 ABG 94 % (92-99)
[2021-11-07 07:55] LABS: FIO2 ABG 40
--- NOTE | 2021-11-07 08:52 | PN ---
DATE: 11/07/2021 SUBJECTIVE: The patient is continued to be sedated, mechanically ventilated. An attempt was made for weaning trial. The patient became extremely tachypneic, tachycardic, hypoxic and therefore was put back on assist control mode. PHYSICAL EXAMINATION: GENERAL: When I saw him this morning, he looked somewhat pale, but no jaundice, cyanosis or thyromegaly. No jugular venous distention. No limb edema. VITAL SIGNS: His heart rate was 72, blood pressure was 98/59, temperature 97.8, respiratory rate was 15 and oxygen saturation was 97%. HEAD, EYES, EARS, NOSE, AND THROAT: Showed he is normocephalic, atraumatic. Has orotracheal and orogastric tube in place. NECK: Supple. HEART: Showed normal first and second heart sounds. No gallop, rub or murmur. CHEST: Showed central trachea, equal bilateral chest expansion, air entry, vesicular breath sounds. I could not appreciate any crepitation or rhonchi. ABDOMEN: Distended, soft, nontender. NEUROLOGIC: He is heavily sedated. His intake over the last 24 hours was 4750, output was 3650. LABORATORY DATA: His lab work this morning showed a white cell count 9400, hemoglobin 12, hematocrit 37, MCV 84 and platelet count 233,000. His serum sodium was 134, potassium 3.7, chloride 98, bicarbonate 34, anion gap of 2, BUN 11, creatinine 1.1. Estimated GFR was 81 mL per minute. His glucose is 144, calcium was 8.5. Total bilirubin and alkaline phosphatase are normal. AST, ALT are elevated. CK was higher at 7568. Total protein 6.9, albumin was 2.6. ASSESSMENT: 1. Suicidal attempt by overdosing on baclofen. He took a total of 160 mg. 2. Acute hypoxic respiratory failure. 3. Hypertension. 4. Anxiety and depression. 5. Hypokalemia, resolved. His serum potassium this morning was 3.7. 6. Rhabdomyolysis, unfortunately CK continued to rise, today is more than 7500. PLAN: Plan is to continue with sedation, mechanical ventilation as he failed a weaning trial twice now. Continue with IV fluid. Continue with potassium supplement. Continue to monitor his electrolytes and creatine kinase. YANI/MARIO ALBERTO DR: Rhea TID: [id number]
--- NOTE | 2021-11-07 09:14 | RAD ---
XR CHEST 1V History: Reason: pneumonia with greenish sputum / Spl. Instructions: / History: Comparison: November 06, 2021 Findings: Increased interstitial thickening with patchy bibasilar opacities. Small bilateral pleural effusions increased on the right. Unchanged heart size. Stable enteric tube. No pneumothorax. Impression: 1. Increased interstitial thickening with ill-defined opacities, may relate to pulmonary edema or in fection. 2. Small bilateral pleural effusions, increased on the right. Electronically signed by: Chidi Harper DO (11/07/2021 9:11 AM) [id number]
--- NOTE | 2021-11-07 10:03 | PDOC ---
PULMONARY PROGRESS NOTES DATE: 11/07/21 TIME: 09:58 Subjective Patient continues on ventilator 5 of PEEP and 40% Sedation turned off this morning at 0952, trial started at 1005 this morning Trial discontinued yesterday 2/2 desaturation, tachycardia. tachypnea, and agitation.. Vitals Vital Signs Date Time Temp Pulse Resp B/P (MAP) Pulse Ox O2 Delivery O2 Flow Rate FiO2 11/07/21 09:30 95 Ventilator 11/07/21 07:00 72 15 98/59 11/07/21 04:00 97.8 97.8 Comments ros unable to obtain sedated on vent General: Alert HEENT: Other (nc at perrl nose clear orally intubated neck no lad no thyromegaly) Lungs: Clear Cardiovascular: S1, S2 Abdomen: Soft, Non-tender Extremities: No Edema Skin: Warm, No Rashes Labs Laboratory Tests Test 11/06/21 03:25 11/06/21 07:50 11/07/21 04:40 11/07/21 07:35 Sodium Level 137 mmol/L (136-145) 134 mmol/L (136-145) Potassium Level 3.8 mmol/L (3.5-5.1) 3.7 mmol/L (3.5-5.1) Chloride Level 96 mmol/L (98-107) 98 mmol/L (98-107) Carbon Dioxide Level 33 mmol/L (21-32) 34 mmol/L (21-32) Anion Gap 8 (6-14) 2 (6-14) Blood Urea Nitrogen 9 mg/dL (8-26) 11 mg/dL (8-26) Creatinine 1.2 mg/dL (0.7-1.3) 1.1 mg/dL (0.7-1.3) Estimated GFR (Cockcroft-Gault) 73.8 81.5 Glucose Level 144 mg/dL (70-99) 144 mg/dL (70-99) Calcium Level 8.5 mg/dL (8.5-10.1) 8.5 mg/dL (8.5-10.1) Creatine Kinase 7330 U/L (39-308) 7568 U/L (39-308) O2 Saturation 93 % (92-99) 94 % (92-99) Arterial Blood pH 7.55 (7.35-7.45) 7.45 (7.35-7.45) Arterial Blood pCO2 at Patient Temp 32 mmHg (35-46) 46 mmHg (35-46) Arterial Blood pO2 at Patient Temp 65 mmHg (65-108) 71 mmHg (65-108) Arterial Blood HCO3 27 mmol/L (21-28) 32 mmol/L (21-28) Arterial Blood Base Excess 5 mmol/L (-3-3) 7 mmol/L (-3-3) FiO2 40 40 White Blood Count 9.4 x10^3/uL (4.0-11.0) Red Blood Count 4.45 x10^6/uL (4.30-5.70) Hemoglobin 11.9 g/dL (13.0-17.5) Hematocrit 37.2 % (39.0-53.0) Mean Corpuscular Volume 84 fL (79-100) Mean Corpuscular Hemoglobin 27 pg (25-35) Mean Corpuscular Hemoglobin Concent 32 g/dL (31-37) Red Cell Distribution Width 13.4 % (11.5-14.5) Platelet Count 233 x10^3/uL (140-400) BUN/Creatinine Ratio 10 (6-20) Total Bilirubin 0.3 mg/dL (0.2-1.0) Aspartate Amino Transf (AST/SGOT) 215 U/L (15-37) Alanine Aminotransferase (ALT/SGPT) 65 U/L (16-63) Alkaline Phosphatase 74 U/L (46-116) Total Protein 6.9 g/dL (6.4-8.2) Albumin 2.6 g/dL (3.4-5.0) Albumin/Globulin Ratio 0.6 (1.0-1.7) Laboratory Tests Test 11/07/21 04:40 11/07/21 07:35 White Blood Count 9.4 x10^3/uL (4.0-11.0) Red Blood Count 4.45 x10^6/uL (4.30-5.70) Hemoglobin 11.9 g/dL (13.0-17.5) Hematocrit 37.2 % (39.0-53.0) Mean Corpuscular Volume 84 fL (79-100) Mean Corpuscular Hemoglobin 27 pg (25-35) Mean Corpuscular Hemoglobin Concent 32 g/dL (31-37) Red Cell Distribution Width 13.4 % (11.5-14.5) Platelet Count 233 x10^3/uL (140-400) Sodium Level 134 mmol/L (136-145) Potassium Level 3.7 mmol/L (3.5-5.1) Chloride Level 98 mmol/L (98-107) Carbon Dioxide Level 34 mmol/L (21-32) Anion Gap 2 (6-14) Blood Urea Nitrogen 11 mg/dL (8-26) Creatinine 1.1 mg/dL (0.7-1.3) Estimated GFR (Cockcroft-Gault) 81.5 BUN/Creatinine Ratio 10 (6-20) Glucose Level 144 mg/dL (70-99) Calcium Level 8.5 mg/dL (8.5-10.1) Total Bilirubin 0.3 mg/dL (0.2-1.0) Aspartate Amino Transf (AST/SGOT) 215 U/L (15-37) Alanine Aminotransferase (ALT/SGPT) 65 U/L (16-63) Alkaline Phosphatase 74 U/L (46-116) Creatine Kinase 7568 U/L (39-308) Total Protein 6.9 g/dL (6.4-8.2) Albumin 2.6 g/dL (3.4-5.0) Albumin/Globulin Ratio 0.6 (1.0-1.7) O2 Saturation 94 % (92-99) Arterial Blood pH 7.45 (7.35-7.45) Arterial Blood pCO2 at Patient Temp 46 mmHg (35-46) Arterial Blood pO2 at Patient Temp 71 mmHg (65-108) Arterial Blood HCO3 32 mmol/L (21-28) Arterial Blood Base Excess 7 mmol/L (-3-3) FiO2 40 Comments 11/05 cxr reviewed, ett ok Heart size is normal. Retrocardiac left lower lobe opacity adjacent to the maile phragm stable. Mild elevation of the right diaphragm with basilar lower lobe opacity is stable, a small subpulmonic right pleural effusion cannot be excluded. 11/04 cxr reviewed There is an endotracheal tube within the mid trachea. There is a nasogastric t ube looped within the stomach. There is stable elevation of the right hemidiaphragm and bilateral lower lobe interstitial infiltrate. There are suspected partial left lower lobe consolidation. There is no pneumothorax. There is no pleural effusion. The heart is normal in size. Impression . IMPRESSION: 1. Acute respiratory failure secondary to toxic encephalopathy/baclofen overdose. 2. Toxic encephalopathy secondary to baclofen overdose. The patient took 23 pills each 20 mg dose. 3. Severe agitation. 4. Abnormal chest x-ray with elevated right hemidiaphragm and volume loss of the left base. 5. No significant bradycardia. It can be associated with baclofen overdose. We will closely monitor. Atropine as indicated if needed. 6. Baclofen overdose can also mimic anoxic encephalopathy. Plan . Updated 11/07/2021 1. Sedation held at 0952, will trial again if patient is able to follow commands. May have to extubate while on precedex as he may be getting agitated while awake on ET tube 2. off bicarb drip 3.ABG reviewed, improved 4. Labs reviewed and stable 5. DVT/GI prophylaxis 6. Chest xray reviewed Impression: 1. Increased interstitial thickening with ill-defined opacities, may relate to pulmonary edema or infection. 2. Small bilateral pleural effusions, increased on the right. 7. Discussed with RN Updated 11/06 1. patient awake, sedation held at 0915, weaning trial started at 0940 recheck blood gas at 1040 2. Continue bicarbonate drip per nephrology 3. Chest x-ray reviewed and stable 4. ABG reviewed, see above 5. Labs reviewed and stable 6. DVT/GI prophylaxis 7. Discussed with RN 11/05 1. cont vent support setting reviewed decrease sedation sbt when more alert he is agitated w decrease sedation ck up to 4000 will cont sedation add precedex if needed no sbt tiral today We will follow the poison control guidelines. no Versed per poison control. 2. Follow ABGs and make necessary adjustments. 3. Continue bicarbonate drip. per nephro 4. chest x-rays reviewed 5. DVT and stress ulcer prophylaxis. 6. Discussed with RN, discussed with RT RECOMMENDATIONS: 1. cont vent support setting reviewed decrease fi02 40% sbt when more stable We will follow the poison control guidelines. We will leave him on propofol and avoid Versed per poison control. 2. Follow ABGs and make necessary adjustments. 3. Continue bicarbonate drip. per nephro 4. chest x-rays reviewed 5. DVT and stress ulcer prophylaxis. 6. Discussed with RN, discussed with RT RAN HUTCHINSON MD Nov 07, 2021 10:03
[2021-11-07] MEDS: IV NORMAL SALINE 1000ML BAG 1,000 ML IV SCH ×2 (10:11→22:20)
[2021-11-07 11:07] LABS: BASE EXCESS ABG 9 mmol/L (-3-3); HCO3 ABG 34 mmol/L (21-28); PCO2 ABG 47 mmHg (35-46); PO2 ABG 65 mmHg (65-108); SAT O2 ABG 93 % (92-99)
[2021-11-07 11:09] LABS: FIO2 ABG 40
[2021-11-07] MEDS ORDERED: VANCOMYCIN 2 GM in IV NORMAL SALINE 500ML BAG 500 ML IV ONE (12:00)
[2021-11-07] MEDS: ENOXAPARIN 40 MG/0.4 ML SYRINGE. SQ SCH (12:15)
--- NOTE | 2021-11-07 15:29 | NUR ---
SS following up with discharge planning. SS reviewed pt chart and discussed with pt RN. Pt extubated today and is currently on Venti Mask. Pulmonology following. 1:1. Pat Consult ordered but pt not ready to be seen. SS will continue to follow for discharge planning.
[2021-11-07] MEDS: VANCOMYCIN PER PHARMACY MC PRN (15:35)
--- NOTE | 2021-11-07 15:38 | NUR ---
Pharmacy Vancomycin Dosing Note S:Consulted to monitor and dose vancomycin started 11/07/21. O:TD KIDD is a 66 year old M with Pneumonia Height: 5 feet, 9 inches Weight: 97.4 kg [place] Body Weight: 70.70 Adjusted Body Weight: 81.38 Dosing Weight: Actual Other Antibiotics: none LABS: Last BUN: 11 Last Creatinine: 1.1 Creatinine Clearance: 78 mL/min Last WBC: 9.4 Last Procalcitonin: Tmax (past 24 hours): 98.9 Microbiology: S. aureus growing in sputum I/O: 3022/3225 Drug Levels: Last level: on at Last dose given 11/07/21 at 1215 Vancomycin Dosing: Loading Dose: 2000 mg x1 Dosing Weight: Actual Target Trough: 15-20 A: Based on: weight and renal function P: 1. Begin Vancomycin 1250 mg IV q12h 2. Follow up Trough level on 11/08/21 at 2330 3. Pharmacy will continue to monitor, follow and adjust therapy as needed. Lexis Farnsworth [facility], 11/07/21 [id number]
[2021-11-07] MEDS: FAMOTIDINE 20 MG TABLET. PO SCH (20:40)
[2021-11-07] MEDS: VANCOMYCIN 1.25 GM in IV NORMAL SALINE 250ML 250 ML IV SCH (23:49)
[2021-11-08] VITALS (15 sets, daily range): BP systolic 106–148; BP diastolic 63–91
[2021-11-08 05:04] LABS: HEMATOCRIT 34.5 % (39.0-53.0); HEMOGLOBIN 11.4 g/dL (13.0-17.5); RED BLOOD COUNT 4.13 x10^6/uL (4.30-5.70); RED CELL DISTRIBUTION WIDTH 13.2 % (11.5-14.5); WHITE BLOOD COUNT 10.8 x10^3/uL (4.0-11.0)
[2021-11-08 05:58] LABS: ALBUMIN 2.7 g/dL (3.4-5.0); ALBUMIN/GLOBULIN RATIO 0.6 (1.0-1.7)
[2021-11-08 05:59] LABS: CALCIUM 8.5 mg/dL (8.5-10.1); POTASSIUM 4.2 mmol/L (3.5-5.1); TOTAL BILIRUBIN 0.5 mg/dL (0.2-1.0)
[2021-11-08] MEDS: POTASSIUM BICARB 20 MEQ EFFERVESCENT TABLET. FT SCH ×3 (06:56→21:00)
[2021-11-08] MEDS: VANCOMYCIN PER PHARMACY MC PRN (08:31)
[2021-11-08] MEDS: LIDOCAINE (700MG/PATCH) PATCH. TD SCH (08:53)
--- NOTE | 2021-11-08 09:49 | PN ---
DATE: 11/07/2021 SUBJECTIVE: The patient is resting, slightly propped up in bed, in no apparent distress. He was successfully extubated yesterday. He apparently was complaining of pain in his left shoulder. Otherwise, denied any complaint. He was not seen yet by the speech therapist. PHYSICAL EXAMINATION: GENERAL: When I examined him, he was somewhat pale, not jaundiced or cyanosed, no thyromegaly. No jugular venous distention. No lower limb edema. VITAL SIGNS: His heart rate was 76, blood pressure was 131/78, temperature was 98.1, respiratory rate was 18 and oxygen saturation was 93% on room air. HEAD, EYES, EARS, NOSE, AND THROAT: Normocephalic, atraumatic. NECK: Supple. HEART: Normal first and second heart sounds. No gallop, rub or murmur. CHEST: Shows central trachea, equal bilateral chest expansion, air entry, vesicular breath sounds. No crepitation or rhonchi. ABDOMEN: Distended, soft, nontender. NEUROLOGIC: He was awake, alert, responding appropriately. All his cranial nerves are intact. He moves extremities without difficulty. His intake was 3000, output was 3225. LABORATORY DATA: As of this morning, his white cell count is 10.8, hemoglobin 11.4, hematocrit 34.5, MCV 83 and platelet count 253,000. His chemistry showed a serum sodium 137, potassium 4.2, chloride 101, bicarbonate 29, anion gap of 7, BUN 12, creatinine 1, estimated GFR was 91 mL per minute. His glucose 136, calcium was 8.5. Total bilirubin, alkaline phosphatase normal. AST, ALT slightly elevated, but trending down and his CK was also trending down, today is 5536. Total protein 7, albumin was 2.7. ASSESSMENT: 1. Suicidal attempt by overdosing on baclofen, he took a total of 460 mg. 2. Acute hypoxic respiratory failure for which he was intubated, mechanical ventilated; however, he was successfully extubated. He is now on room air, maintaining his oxygen saturation of 93%. 3. Hypertension. 4. Anxiety and depression. 5. Hypokalemia, resolved. 6. Rhabdomyolysis, slowly improving. His CK is down to 5500. PLAN: To continue with IV fluid. We did consult the speech therapist. Physical and occupational therapist for evaluation and treatment. AMM/SONYA DR: Rhea TID: [id number]
--- NOTE | 2021-11-08 10:30 | PDOC ---
PULMONARY PROGRESS NOTES DATE: 11/08/21 TIME: 10:26 Subjective Patient was extubated 11/07/2021. Fully awake and currently on room air. Vitals Vital Signs Date Time Temp Pulse Resp B/P (MAP) Pulse Ox O2 Delivery O2 Flow Rate FiO2 11/08/21 10:00 82 16 123/68 96 Room Air 11/08/21 08:00 98.7 98.7 11/08/21 07:00 5.0 General: Alert, No acute distress HEENT: Other (nc at perrl nose clear orally intubated neck no lad no thyromegaly) Lungs: Clear Cardiovascular: S1, S2 Abdomen: Soft, Non-tender Extremities: No Edema Skin: Warm, No Rashes Labs Laboratory Tests Test 11/07/21 04:40 11/07/21 07:35 11/07/21 11:00 11/08/21 04:30 White Blood Count 9.4 x10^3/uL (4.0-11.0) 10.8 x10^3/uL (4.0-11.0) Red Blood Count 4.45 x10^6/uL (4.30-5.70) 4.13 x10^6/uL (4.30-5.70) Hemoglobin 11.9 g/dL (13.0-17.5) 11.4 g/dL (13.0-17.5) Hematocrit 37.2 % (39.0-53.0) 34.5 % (39.0-53.0) Mean Corpuscular Volume 84 fL (79-100) 83 fL (79-100) Mean Corpuscular Hemoglobin 27 pg (25-35) 28 pg (25-35) Mean Corpuscular Hemoglobin Concent 32 g/dL (31-37) 33 g/dL (31-37) Red Cell Distribution Width 13.4 % (11.5-14.5) 13.2 % (11.5-14.5) Platelet Count 233 x10^3/uL (140-400) 253 x10^3/uL (140-400) Sodium Level 134 mmol/L (136-145) 137 mmol/L (136-145) Potassium Level 3.7 mmol/L (3.5-5.1) 4.2 mmol/L (3.5-5.1) Chloride Level 98 mmol/L (98-107) 101 mmol/L (98-107) Carbon Dioxide Level 34 mmol/L (21-32) 29 mmol/L (21-32) Anion Gap 2 (6-14) 7 (6-14) Blood Urea Nitrogen 11 mg/dL (8-26) 12 mg/dL (8-26) Creatinine 1.1 mg/dL (0.7-1.3) 1.0 mg/dL (0.7-1.3) Estimated GFR (Cockcroft-Gault) 81.5 91.0 BUN/Creatinine Ratio 10 (6-20) 12 (6-20) Glucose Level 144 mg/dL (70-99) 136 mg/dL (70-99) Calcium Level 8.5 mg/dL (8.5-10.1) 8.5 mg/dL (8.5-10.1) Total Bilirubin 0.3 mg/dL (0.2-1.0) 0.5 mg/dL (0.2-1.0) Aspartate Amino Transf (AST/SGOT) 215 U/L (15-37) 170 U/L (15-37) Alanine Aminotransferase (ALT/SGPT) 65 U/L (16-63) 69 U/L (16-63) Alkaline Phosphatase 74 U/L (46-116) 69 U/L (46-116) Creatine Kinase 7568 U/L (39-308) 5535 U/L (39-308) Total Protein 6.9 g/dL (6.4-8.2) 7.0 g/dL (6.4-8.2) Albumin 2.6 g/dL (3.4-5.0) 2.7 g/dL (3.4-5.0) Albumin/Globulin Ratio 0.6 (1.0-1.7) 0.6 (1.0-1.7) O2 Saturation 94 % (92-99) 93 % (92-99) Arterial Blood pH 7.45 (7.35-7.45) 7.47 (7.35-7.45) Arterial Blood pCO2 at Patient Temp 46 mmHg (35-46) 47 mmHg (35-46) Arterial Blood pO2 at Patient Temp 71 mmHg (65-108) 65 mmHg (65-108) Arterial Blood HCO3 32 mmol/L (21-28) 34 mmol/L (21-28) Arterial Blood Base Excess 7 mmol/L (-3-3) 9 mmol/L (-3-3) FiO2 40 40 Laboratory Tests Test 11/07/21 11:00 11/08/21 04:30 O2 Saturation 93 % (92-99) Arterial Blood pH 7.47 (7.35-7.45) Arterial Blood pCO2 at Patient Temp 47 mmHg (35-46) Arterial Blood pO2 at Patient Temp 65 mmHg (65-108) Arterial Blood HCO3 34 mmol/L (21-28) Arterial Blood Base Excess 9 mmol/L (-3-3) FiO2 40 White Blood Count 10.8 x10^3/uL (4.0-11.0) Red Blood Count 4.13 x10^6/uL (4.30-5.70) Hemoglobin 11.4 g/dL (13.0-17.5) Hematocrit 34.5 % (39.0-53.0) Mean Corpuscular Volume 83 fL (79-100) Mean Corpuscular Hemoglobin 28 pg (25-35) Mean Corpuscular Hemoglobin Concent 33 g/dL (31-37) Red Cell Distribution Width 13.2 % (11.5-14.5) Platelet Count 253 x10^3/uL (140-400) Sodium Level 137 mmol/L (136-145) Potassium Level 4.2 mmol/L (3.5-5.1) Chloride Level 101 mmol/L (98-107) Carbon Dioxide Level 29 mmol/L (21-32) Anion Gap 7 (6-14) Blood Urea Nitrogen 12 mg/dL (8-26) Creatinine 1.0 mg/dL (0.7-1.3) Estimated GFR (Cockcroft-Gault) 91.0 BUN/Creatinine Ratio 12 (6-20) Glucose Level 136 mg/dL (70-99) Calcium Level 8.5 mg/dL (8.5-10.1) Total Bilirubin 0.5 mg/dL (0.2-1.0) Aspartate Amino Transf (AST/SGOT) 170 U/L (15-37) Alanine Aminotransferase (ALT/SGPT) 69 U/L (16-63) Alkaline Phosphatase 69 U/L (46-116) Creatine Kinase 5535 U/L (39-308) Total Protein 7.0 g/dL (6.4-8.2) Albumin 2.7 g/dL (3.4-5.0) Albumin/Globulin Ratio 0.6 (1.0-1.7) Comments 11/05 cxr reviewed, ett ok Heart size is normal. Retrocardiac left lower lobe opacity adjacent to the diaphragm stable. Mild elevation of the right diaphragm with basilar lower lobe opacity is stable, a small subpulmonic right pleural effusion cannot be excluded. 11/04 cxr reviewed There is an endotracheal tube within the mid trachea. There is a nasogastric tube looped within the stomach. There is stable elevation of the right hemidiaphragm and bilateral lower lobe interstitial infiltrate. There are suspected partial left lower lobe consolidation. There is no pneumothorax. There is no pleural effusion. The heart is normal in size. Impression . IMPRESSION: 1. Acute respiratory failure secondary to toxic encephalopathy/baclofen overd ose. Extubated 11/07/2021 2. Toxic encephalopathy secondary to baclofen overdose. The patient took 23 pills each 20 mg dose. 3. Severe agitation. Resolved post extubation. 4. Abnormal chest x-ray with elevated right hemidiaphragm and volume loss of the left base. 5. No significant bradycardia. It can be associated with baclofen overdose. We will closely monitor. Atropine as indicated if needed. 6. No evidence of anoxic encephalopathy. 7. Suicidal 8. MSSA in sputum Plan . Updated 11/08/2021 1. Doing well from a pulmonary standpoint. Currently extubated and on room air. Fully awake and following commands. 2. off bicarb drip 3.start oral nutrition. 4. Labs reviewed and stable 5. DVT/GI prophylaxis 6. Needs inpatient psychiatric admission. 7. Discussed with RN 8. dc vanc and change to PO doxy ( MSSA in sputum) Transfer to the floor with 1 is to 1 monitoring. We will sign off and see him as needed. RAN HUTCHINSON MD Nov 08, 2021 10:30
--- NOTE | 2021-11-08 10:49 | NUR ---
Patient evaluated by PAT team, per their recommendations the patient needs to stay a 1:1 observation patient until discharge and needs to be discharged to an inpatient facility. She reached out to Xin with the [facility] and discussed a plan to discharge the patient from [facility] to inpatient. Xin will be out of the office, so the person to contact with questions is Cindy Siegel, phone number [phone] ext. [phone]. The transfer agent will continue to follow up with nursing staff.
[2021-11-08] MEDS: VANCOMYCIN 1.25 GM in IV NORMAL SALINE 250ML 250 ML IV SCH (11:07)
[2021-11-08] MEDS: ENOXAPARIN 40 MG/0.4 ML SYRINGE. SQ SCH (11:07)
--- NOTE | 2021-11-08 11:44 | NUR ---
Bedside Swallow evaluation completed. Please refer to full report in intervention section for additional information. Impressions: Moderate pharyngeal dysphagia and impaired voice consistent w/ laryngeal dysfunction following intubation. Currently pt demonstrates s/s aspiration w/ minimal PO trials and no safe diet is identified. Anticipate improved swallow function w/ increased time following extubation. Recommendations: NPO. Aggressive oral care. ST f/u for dysphagia and to determine readiness and safety to start PO diet. D/w w/ pt and Inessa.
[2021-11-08] MEDS ORDERED: DOXYCYCLINE HYCLATE 100 MG TABLET PO SCH (12:00)
--- NOTE | 2021-11-08 13:19 | NUR ---
Spoke with BOLT SAWYER at the [facility] clinic at the [facility], updated on POC and discharge planning. She gave the number directly to the nursing clinic to reach with an official time or plan of discharge: [phone] ext [phone]. She said it would be easier to go through Cindy the social secretary (see previous note for phone number).
--- NOTE | 2021-11-08 13:30 | NUR ---
Patient transferred to , report given to Ernie. Belongings sent with patient.
[2021-11-08] MEDS: IV NORMAL SALINE 1000ML BAG 1,000 ML IV SCH (15:13)
--- NOTE | 2021-11-08 15:33 | NUR ---
SS following up with discharge planning. SS reviewed pt chart and discussed with pt RN. Pt transferred to room 418. Pt is currently on room air. Pt on IV Doxycycline. PAT team met with pt. PAT team contacted Relationship Specialist, Rachel, at the [facility]. Cindy Siegel at the [facility] will continue to work on the case. [facility] will provide psych services to pt at discharge. SS will continue to follow for discharge planning.
[2021-11-08] MEDS: PATCH REMOVAL. MC SCH (21:00)
[2021-11-08] MEDS: FAMOTIDINE 20 MG TABLET. PO SCH (21:00)
[2021-11-08] MEDS: DOXYCYCLINE HYCLATE 100 MG in IV DEXTROSE 5% 100ML 100 ML IV SCH (21:12)
[2021-11-09 03:00] VITALS: BP 148/80
[2021-11-09] MEDS: IV NORMAL SALINE 1000ML BAG 1,000 ML IV SCH ×2 (04:50→21:27)
[2021-11-09] MEDS: POTASSIUM BICARB 20 MEQ EFFERVESCENT TABLET. FT SCH ×3 (07:05→21:26)
[2021-11-09 07:25] VITALS: BP 147/85
[2021-11-09] MEDS: DOXYCYCLINE HYCLATE 100 MG in IV DEXTROSE 5% 100ML 100 ML IV SCH (07:37)
[2021-11-09] MEDS: LIDOCAINE (700MG/PATCH) PATCH. TD SCH (07:38)
--- NOTE | 2021-11-09 09:31 | PN ---
DATE: 11/09/2021 SUBJECTIVE: The patient is resting, slightly propped up in bed, in no apparent respiratory distress. He is awake, alert. On questioning him, he denied any complaint. He continued to be on one to one as he was admitted with suicidal attempt, overdosing on 460 mg of baclofen. He apparently failed his video swallowing evaluation yesterday and he is scheduled to be evaluated again. PHYSICAL EXAMINATION: GENERAL: When I examined him, he looked well and was clearly in no apparent respiratory distress, pale, not jaundiced or cyanosed. No thyromegaly. No jugular venous distention. No limb edema. VITAL SIGNS: His heart rate was 67, blood pressure 147/85, temperature 98.6, respiratory rate was 18 and oxygen saturation was 99% on room air. HEAD, EYES, EARS, NOSE AND THROAT: Normocephalic, atraumatic. NECK: Supple. HEART: Normal first and second heart sounds. No gallop or murmur. CHEST: Clear to auscultation, no crepitation or rhonchi. ABDOMEN: Distended, soft, nontender. NEUROLOGIC: He was grossly intact. ASSESSMENT: 1. Suicidal attempt by overdosing on baclofen as he took a total of 460 mg. 2. Acute hypoxic respiratory failure, for which he was intubated and mechanically ventilated; however, was successfully extubated. He is now on room air, maintaining his oxygen saturation of 95%. 3. Hypertension. 4. Anxiety and depression. 5. Hypokalemia, resolved. 6. Rhabdomyolysis, slowly improving. His CK was down to 5500. PLAN: To continue with IV fluid. Continue with IV doxycycline for Staphylococcus aureus bacteremia as he grew methicillin-susceptible Staphylococcus aureus from his sputum culture. Apparently the patient is awaiting a bed at the [facility] psych unit. YANI/SONYA DR: Rhea TID: [id number]
--- NOTE | 2021-11-09 10:45 | NUR ---
SASKIA following. Discussed with RN. SASKIA spoke with Lidia MARTINEZ), Franklyn will come back to see pt today to see if he can be cleared from the 1:1. Plan is for pt to go to inpatient unit at the [facility] when medically cleared. Pt now on a regular diet. SASKIA will continue to follow. Addendum: 11/09/21 at 1226 by AMADEO KRUGER Franklyn MARTINEZ) met with pt, pt can be removed from 1:1. Franklyn is screening pt at the [facility]. SASKIA will continue to follow. Addendum: 11/09/21 at 1626 by AMADEO KRUGER SASKIA left voicemail for Cindy Siegel at [facility] to determine acceptance decision and bed availability.
[2021-11-09 11:00] VITALS: BP 146/98
[2021-11-09] MEDS: ENOXAPARIN 40 MG/0.4 ML SYRINGE. SQ SCH (11:08)
--- NOTE | 2021-11-09 11:08 | PDOC ---
PULMONARY PROGRESS NOTES DATE: 11/09/21 TIME: 11:07 Subjective Patient was extubated 11/07/2021. Fully awake and currently on room air. Vitals Vital Signs Date Time Temp Pulse Resp B/P (MAP) Pulse Ox O2 Delivery O2 Flow Rate FiO2 11/09/21 11:00 98.1 85 20 146/98 (114) 94 Room Air 98.1 11/08/21 07:00 5.0 General: Alert, No acute distress HEENT: Other (nc at perrl nose clear orally intubated neck no lad no thyromegaly) Lungs: Clear Cardiovascular: S1, S2 Abdomen: Soft, Non-tender Extremities: No Edema Skin: Warm, No Rashes Labs Laboratory Tests Test 11/08/21 04:30 White Blood Count 10.8 x10^3/uL (4.0-11.0) Red Blood Count 4.13 x10^6/uL (4.30-5.70) Hemoglobin 11.4 g/dL (13.0-17.5) Hematocrit 34.5 % (39.0-53.0) Mean Corpuscular Volume 83 fL (79-100) Mean Corpuscular Hemoglobin 28 pg (25-35) Mean Corpuscular Hemoglobin Concent 33 g/dL (31-37) Red Cell Distribution Width 13.2 % (11.5-14.5) Platelet Count 253 x10^3/uL (140-400) Sodium Level 137 mmol/L (136-145) Potassium Level 4.2 mmol/L (3.5-5.1) Chloride Level 101 mmol/L (98-107) Carbon Dioxide Level 29 mmol/L (21-32) Anion Gap 7 (6-14) Blood Urea Nitrogen 12 mg/dL (8-26) Creatinine 1.0 mg/dL (0.7-1.3) Estimated GFR (Cockcroft-Gault) 91.0 BUN/Creatinine Ratio 12 (6-20) Glucose Level 136 mg/dL (70-99) Calcium Level 8.5 mg/dL (8.5-10.1) Total Bilirubin 0.5 mg/dL (0.2-1.0) Aspartate Amino Transf (AST/SGOT) 170 U/L (15-37) Alanine Aminotransferase (ALT/SGPT) 69 U/L (16-63) Alkaline Phosphatase 69 U/L (46-116) Creatine Kinase 5535 U/L (39-308) Total Protein 7.0 g/dL (6.4-8.2) Albumin 2.7 g/dL (3.4-5.0) Albumin/Globulin Ratio 0.6 (1.0-1.7) Comments 11/05 cxr reviewed, ett ok Heart size is normal. Retrocardiac left lower lobe opacity adjacent to the diaphragm stable. Mild elevation of the right diaphragm with basilar lower lobe opacity is stable, a small subpulmonic right pleural effusion cannot be excluded. 11/04 cxr reviewed There is an endotracheal tube within the mid trachea. There is a nasogastric tube looped within the stomach. There is stable elevation of the right hemidiaphragm and bilateral lower lobe interstitial infiltrate. There are suspected partial left lower lobe consolidation. There is no pneumothorax. There is no pleural effusion. The heart is normal in size. Impression . IMPRESSION: 1. Acute respiratory failure secondary to toxic encephalopathy/baclofen overdose. Extubated 11/07/2021 2. Toxic encephalopathy secondary to baclofen overdose. The patient took 23 pills each 20 mg dose. 3. Severe agitation. Resolved post extubation. 4. Abnormal chest x-ray with elevated right hemidiaphragm and volume loss of the left base. 5. No significant bradycardia. It can be associated with baclofen overdose. We will closely monitor. Atropine as indicated if needed. 6. No evidence of anoxic encephalopathy. 7. Suicidal 8. MSSA in sputum Plan . 1. Doing well from a pulmonary standpoint. Currently extubated and on room air. Fully awake and following commands. 2. Physical therapy. 3. oral nutrition. 4. Labs reviewed and stable 5. DVT/GI prophylaxis 6. Needs inpatient psychiatric admission. 7. Discussed with RN 8. Change to PO doxy ( MSSA in sputum), treat for total of 10 days. RAN HUTCHINSON MD Nov 09, 2021 11:08
[2021-11-09] MEDS ORDERED: DOXY100T PO (13:06)
[2021-11-09 15:00] VITALS: BP 151/93
[2021-11-09 19:00] VITALS: BP 133/80
[2021-11-09] MEDS: PATCH REMOVAL. MC SCH (21:00)
[2021-11-09] MEDS: FAMOTIDINE 20 MG TABLET. PO SCH (21:26)
[2021-11-09] MEDS: DOXYCYCLINE HYCLATE 100 MG TABLET PO SCH (21:26)
[2021-11-09] MEDS: LACTOBACILLUS RHAMNOSUS GG 1 CAPSULE. PO SCH (21:26)
[2021-11-09 23:00] VITALS: BP 146/95
[2021-11-10 03:00] VITALS: BP 142/86
[2021-11-10] MEDS: IV NORMAL SALINE 1000ML BAG 1,000 ML IV SCH (03:40)
[2021-11-10 07:00] VITALS: BP 150/87
[2021-11-10 07:56] LABS: ALBUMIN 2.9 g/dL (3.4-5.0); ALBUMIN/GLOBULIN RATIO 0.7 (1.0-1.7); CREATININE 0.9 mg/dL (0.7-1.3); GFR 102.8; POTASSIUM 3.9 mmol/L (3.5-5.1); TOTAL BILIRUBIN 0.6 mg/dL (0.2-1.0); TOTAL PROTEIN 7.3 g/dL (6.4-8.2)
[2021-11-10] MEDS: LIDOCAINE (700MG/PATCH) PATCH. TD SCH (09:00)
[2021-11-10] MEDS: LACTOBACILLUS RHAMNOSUS GG 1 CAPSULE. PO SCH (09:13)
[2021-11-10] MEDS: DOXYCYCLINE HYCLATE 100 MG TABLET PO SCH (09:13)
[2021-11-10] MEDS: POTASSIUM BICARB 20 MEQ EFFERVESCENT TABLET. FT SCH ×2 (09:13→13:41)
--- NOTE | 2021-11-10 09:23 | PN ---
DATE: 11/10/2021 SUBJECTIVE: The patient is sitting comfortably in his chair, no apparent respiratory distress, awake, alert. On questioning him, he denied any complaint. He is now on a regular diet. His Buck catheter was removed. He is up and about. He is off one-on-one, awaiting inpatient psychiatric treatment. On questioning him, he denied any complaint. Nursing staff did not voice any concern. OBJECTIVE: GENERAL: On examining him, he looked well and was clearly in no apparent respiratory distress. VITAL SIGNS: His heart rate was 71, blood pressure was 150/87, temperature 98, respiratory rate was 16, and oxygen saturation was 94% on room air. HEAD, EYES, EARS, NOSE AND THROAT: Normocephalic, atraumatic. NECK: Supple. HEART: Normal first and second heart sounds. No gallop or murmur. CHEST: Clear to auscultation, no crepitation or rhonchi. ABDOMEN: Distended, soft, nontender. NEUROLOGIC: He was awake, alert, responding appropriately. Cranial nerves intact. He moves extremities without difficulty, ambulates without assistance or assistive devices. His intake and output are incompletely recorded. LABORATORY DATA: This morning showed white cell count of 10.8, hemoglobin 11.4, hematocrit 34, MCV 83 and platelet count 253,000. His chemistry showed a serum sodium 137, potassium 3.9, chloride 101, bicarbonate 26, anion gap of 10, BUN 11, creatinine 0.9, estimated GFR was 103 mL per minute. His glucose 119, calcium was 9. Total bilirubin, alkaline phosphatase normal. AST, ALT slightly elevated, but trending down. His CK was down to 1647. Total protein 7.3, albumin was 2.9. His sputum has grown methicillin-sensitive Staphylococcus aureus susceptible to doxycycline. ASSESSMENT: 1. Suicidal attempt by overdosing on baclofen as he took a total of 460 mg. 2. Acute hypoxic respiratory failure, for which he was intubated and mechanically ventilated; however, he was successfully extubated. He is now on room air, maintaining his oxygen saturation at 95%. 3. Hypertension. 4. Anxiety and depression. 5. Hypokalemia. It has resolved. 6. Rhabdomyolysis, slowly improving. His most recent CK was down to 1500. 7. Methicillin-susceptible Staphylococcus aureus, for which he is now on oral doxycycline. PLAN: Obviously to continue with oral doxycycline. Continue with PT, OT and await the placement at [facility]. YANI/BOB DR: YANI/deana TID: [id number]
--- NOTE | 2021-11-10 09:50 | PDOC ---
PULMONARY PROGRESS NOTES DATE: 11/10/21 TIME: 09:49 Subjective Patient was extubated 11/07/2021. Fully awake and currently on room air. Vitals Vital Signs Date Time Temp Pulse Resp B/P (MAP) Pulse Ox O2 Delivery O2 Flow Rate FiO2 11/10/21 07:00 98.0 71 16 150/87 (108) 94 Room Air 98.0 General: Alert, No acute distress HEENT: Other (nc at perrl nose clear orally intubated neck no lad no thyromegaly) Lungs: Clear Cardiovascular: S1, S2 Abdomen: Soft, Non-tender Extremities: No Edema Skin: Warm, No Rashes Labs Laboratory Tests Test 11/10/21 06:00 Sodium Level 137 mmol/L (136-145) Potassium Level 3.9 mmol/L (3.5-5.1) Chloride Level 101 mmol/L (98-107) Carbon Dioxide Level 26 mmol/L (21-32) Anion Gap 10 (6-14) Blood Urea Nitrogen 11 mg/dL (8-26) Creatinine 0.9 mg/dL (0.7-1.3) Estimated GFR (Cockcroft-Gault) 102.8 BUN/Creatinine Ratio 12 (6-20) Glucose Level 119 mg/dL (70-99) Calcium Level 9.0 mg/dL (8.5-10.1) Total Bilirubin 0.6 mg/dL (0.2-1.0) Aspartate Amino Transf (AST/SGOT) 89 U/L (15-37) Alanine Aminotransferase (ALT/SGPT) 91 U/L (16-63) Alkaline Phosphatase 67 U/L (46-116) Creatine Kinase 1647 U/L (39-308) Total Protein 7.3 g/dL (6.4-8.2) Albumin 2.9 g/dL (3.4-5.0) Albumin/Globulin Ratio 0.7 (1.0-1.7) Laboratory Tests Test 11/10/21 06:00 Sodium Level 137 mmol/L (136-145) Potassium Level 3.9 mmol/L (3.5-5.1) Chloride Level 101 mmol/L (98-107) Carbon Dioxide Level 26 mmol/L (21-32) Anion Gap 10 (6-14) Blood Urea Nitrogen 11 mg/dL (8-26) Creatinine 0.9 mg/dL (0.7-1.3) Estimated GFR (Cockcroft-Gault) 102.8 BUN/Creatinine Ratio 12 (6-20) Glucose Level 119 mg/dL (70-99) Calcium Level 9.0 mg/dL (8.5-10.1) Total Bilirubin 0.6 mg/dL (0.2-1.0) Aspartate Amino Transf (AST/SGOT) 89 U/L (15-37) Alanine Aminotransferase (ALT/SGPT) 91 U/L (16-63) Alkaline Phosphatase 67 U/L (46-116) Creatine Kinase 1647 U/L (39-308) Total Protein 7.3 g/dL (6.4-8.2) Albumin 2.9 g/dL (3.4-5.0) Albumin/Globulin Ratio 0.7 (1.0-1.7) Medications Active Scripts Medications Dose Route/Sig Max Daily Dose Days Date Category Doxycycline Hyclate 100 Mg Tablet 1 Tab PO BID 11/09/21 Reported Comments 11/05 cxr reviewed, ett ok Heart size is normal. Retrocardiac left lower lobe opacity adjacent to the diaphragm stable. Mild elevation of the right diaphragm with basilar lower lobe opacity is stable, a small subpulmonic right pleural effusion cannot be excluded. 11/04 cxr reviewed There is an endotracheal tube within the mid trachea. There is a nasogastric tube looped within the stomach. There is stable elevation of the right hemidiaphragm and bilateral lower lobe interstitial infiltrate. There are suspected partial left lower lobe consolidation. There is no pneumothorax. There is no pleural effusion. The heart is normal in size. Impression . IMPRESSION: 1. Acute respiratory failure secondary to toxic encephalopathy/baclofen overdose. Extubated 11/07/2021 2. Toxic encephalopathy secondary to baclofen overdose. The patient took 23 pills each 20 mg dose. 3. Severe agitation. Resolved post extubation. 4. Abnormal chest x-ray with elevated right hemidiaphragm and volume loss of the left base. 5. No significant bradycardia. It can be associated with baclofen overdose. We will closely monitor. Atropine as indicated if needed. 6. No evidence of anoxic encephalopathy. 7. Suicidal 8. MSSA in sputum Plan . 1. Doing well from a pulmonary standpoint. Currently extubated and on room air. Fully awake and following commands. 2. Physical therapy. 3. oral nutrition. 4. Labs reviewed and stable 5. DVT/GI prophylaxis 6. Needs inpatient psychiatric admission. 7. Discussed with RN 8. PO doxy ( MSSA in sputum), treat for total of 10 days. d/w RAN Jacob MD Nov 10, 2021 09:49
--- NOTE | 2021-11-10 10:07 | NUR ---
SASKIA following. Discussed with RN. SASKIA received call from Rachel at [facility] asking what was going on with pt. SASKIA asked if Rachel had received the referral to which Rachel stated no - SASKIA obtained Rachel's fax number, and faxed PAT referral. Awaiting outcome. Rachel ph: [phone], fax: [phone]. SASKIA will continue to follow. Addendum: 11/10/21 at 1032 by AMADEO KRUGER Rachel contacted [facility] to request various labs and an EKG, as well as ask various questions. Answers provided - RN ordering requested labs etc. SASKIA will continue to follow. Addendum: 11/10/21 at 1519 by AMADEO KRUGER SASKIA faxed requested labs etc to Rachel earlier in the day. SASKIA contacted Rachel at this time to determine acceptance decision. Rachel had not yet heard from the transfer team so was planning on calling them, however she leaves at 1600 so if we have not heard by then we can call the AOD at the [facility] at [phone] to determine acceptance. If pt is accepted he will have to be admitted through their ER due to it being late in the day. The number provided is where RN to RN report should be called if accepted. RN notified. SASKIA will continue to follow. Addendum: 11/10/21 at [address] Garcia at [facility] trying to reach Dr. Canseco - SASKIA sent Dr. Canseco a message with Dr. Garcia's phone number (ph: [phone]). RN notified. Addendum: 11/10/21 at 1607 by AMADEO KRUGER S[facility]IA spoke with Rachel at [facility] - if pt accepted pt will need to come by secure transport/ ambulance to [facility] - [address] [facility], [place], [address]. SASKIA completed [facility] transport form in case of acceptance and provided to RN. SASKIA will continue to follow. Addendum: 11/10/21 at 1626 by AMADEO KRUGER SASKIA spoke with Dr. Garcia - pt accepted at [facility] psych. Transport arranged through [facility] for 1730 for secure transport to [facility] ER. RN notified. RN has report number. SASKIA sent message to Dr. Canseco to notify of acceptance.
[2021-11-10 10:56] VITALS: BP 144/87
--- NOTE | 2021-11-10 10:58 | EKG ---
[facility] [address] [place] [address] Test Date: 2021-11-10 Test Time: 10:48:23 Pat Name: TD KIDD Department: Room: 418 Gender: M Information Systems Security Developer: TEO : 1955 Requested By: ARIA HUTCHISON Order Number: [id number] Reading MD: Justin Redd Measurements Intervals Banco Rate: 75 P: 55 DE: 164 QRS: 33 QRSD: 72 T: 59 QT: 364 QTc: 409 Interpretive Statements SINUS RHYTHM NORMAL ECG RI6.02 No previous ECG available for comparison Electronically Signed On 11-12-2021 15:09:42 CDT by Justin Redd
[2021-11-10] MEDS: ENOXAPARIN 40 MG/0.4 ML SYRINGE. SQ SCH (11:11)
[2021-11-10 11:16] LABS: PHOSPHORUS 3.4 mg/dL (2.6-4.7)
[2021-11-10 12:00] LABS: COLOR,URINE YELLOW
[2021-11-10 12:01] LABS: BILIRUBIN,URINE NEGATIVE (NEG); CLARITY,URINE CLEAR; NITRITE,URINE NEGATIVE (NEG); PH,URINE 7.5 (<5.0-8.0); PROTEIN,URINE >=300 mg/dL (NEG-TRACE)
[2021-11-10 12:02] LABS: BACTERIA,URINE 0 /HPF (0-FEW)
[2021-11-10 12:13] LABS: BARBITURATES NEG (NEG); BENZODIAZEPINES NEG (NEG); CANNABINOIDS NEG (NEG); COCAINE NEG (NEG); METHADONE NEG (NEG); OPIATES NEG (NEG); PHENCYCLIDINE NEG (NEG)
[2021-11-10 12:15] LABS: AMPHETAMINE/METHAMPHETAMINE NEG (NEG)
--- NOTE | 2021-11-10 13:50 | NUR ---
Wound Care Pt dressed and ready for discharge upon arrival of [facility]. Pt declined assessment.
[2021-11-10 14:55] VITALS: BP 143/85
--- NOTE | 2021-11-10 17:05 | NUR ---
Report called to [facility] and spoke with Derrick SHAHID in ER.
--- NOTE | 2021-11-10 18:45 | NUR ---
Discharged to [facility] in [place] by ambulance.
== END 2021-11-10 18:45 | disposition short-term general hospital (02) | DRG 917 ==
LOC: 1 WEST ICU 23:33 → 4 NORTH 11-08 13:42
PROVIDERS: ADMIT Internal Medicine; ATTEND Internal Medicine
PROC: 5A1955Z Respiratory Ventilation, Greater than 96 Consecutive Hours (ICD-10-PCS; principal; 2021-11-02)
PROC: 0BH17EZ Insertion of Endotracheal Airway into Trachea, Via Natural or Artificial Opening (ICD-10-PCS; 2021-11-02)
DX: T42.8X2A Poisoning by antiparkinsonism drugs and other central muscle-tone depressants, intentional self-harm, initial encounter (principal); J96.01 Acute respiratory failure with hypoxia; G92.8 Other toxic encephalopathy; J81.1 Chronic pulmonary edema; M62.82 Rhabdomyolysis; E87.6 Hypokalemia; F32.A Depression, unspecified; F41.9 Anxiety disorder, unspecified; I10 Essential (primary) hypertension; T48.1X2A Poisoning by skeletal muscle relaxants [neuromuscular blocking agents], intentional self-harm, initial encounter; Z20.822 Contact with and (suspected) exposure to COVID-19; Z88.8 Allergy status to other drugs, medicaments and biological substances; Y92.89 Other specified places as the place of occurrence of the external cause; B95.61 Methicillin susceptible Staphylococcus aureus infection as the cause of diseases classified elsewhere
CPT/HCPCS: 36415; 36600; 71045; 80048; 80053; 80307; 81001; 82550; 82805; 83735; 84100; 84443; 85025; 85027; 87070; 87077; 87186; 87426; 93005; 94002; 94003; 94640; 94760; G0480; J1650; J2704; J3010; J3370; J3490; J7030; J7040; J7050; J7060; 92526-GN; 92610-GN; 97116-GP; 97530-GO; 97535-GO; G0378